=== PATIENT | female | born 1955 | race Caucasian/White ===

== ENCOUNTER 2017-06-07 14:28 | Emergency (ER) | payer MEDICARE, OTHER ==
[2017-06-07 14:46] VITALS: BMI 25.9
[2017-06-07] MEDS ORDERED: Albuterol-Ipratrop 3 mg / 0.5 (3 ml) UD INH STA (16:04)
[2017-06-07] MEDS ORDERED: guaiFENesin 100 mg/5 ml Syrup UD PO STA (16:05)
--- NOTE | 2017-06-07 16:31 | RAD ---
PROCEDURE: Chest dated 06/07/2017. HISTORY: SOB COMPARISON: Comparison chest 10/30/2014. FINDINGS: LUNGS: There appears to be mild bibasilar atelectasis with what may represent some minor linear scarring in the left lateral mid to lower lung field. Minor biapical pleural thickening right greater than left. PLEURA: No pneumothorax or pleural fluid seen. CARDIOVASCULAR: Sternotomy wires again noted. Heart size appears borderline/mildly enlarged. OSSEOUS STRUCTURES: No significant abnormalities. VISUALIZED UPPER ABDOMEN: Normal. OTHER FINDINGS: None. IMPRESSION: Suspect mild bibasilar atelectasis and probable linear scarring left lateral mid to lower lung field
[2017-06-07 16:34] LABS: BASO % 0.6 % (0.0-2.0); EOS # 0.2 K/uL (0.0-0.7); EOS % 1.9 % (0.0-4.0); HEMATOCRIT 39.9 % (34.0-47.0); LYMPH # 1.9 K/uL (1.0-4.3); LYMPH % 21.8 % (20.0-40.0); MEAN CELL VOLUME 81.1 fL (81.0-99.0); MEAN CORPUSCULAR HEMOGLOBIN 25.9 pg (27.0-31.0); MEAN PLATELET VOLUME 9.2 fL (7.2-11.7); MONO # 0.7 K/uL (0.0-0.8); MONO % 8.3 % (0.0-10.0); NRBC % 0.1 % (0.0-2.0); RED CELL DISTRIBUTION WIDTH 14.3 % (11.5-14.5); WHITE BLOOD COUNT 8.7 K/uL (4.8-10.8)
[2017-06-07 16:49] LABS: ALB/GLOB RATIO 1.3 (1.0-2.1); ALKALINE PHOSPHATASE 85 U/L (38-126); ALT/SGPT 45 U/L (9-52); AST/SGOT 40 U/L (14-36); BILIRUBIN,TOTAL 0.6 mg/dL (0.2-1.3); BLOOD UREA NITROGEN 40 mg/dL (7-17); CALCIUM 8.6 mg/dl (8.6-10.4); CARBON DIOXIDE 21 mmol/L (22-30); CHLORIDE 106 mmol/L (98-107); GFR AFRICAN-AMERICAN 46; GLUCOSE,RANDOM 102 mg/dL (65-105); POTASSIUM 4.4 mmol/L (3.6-5.2); SODIUM 136 mmol/L (132-148); TOTAL PROTEIN 6.7 g/dL (6.3-8.3)
[2017-06-07] MEDS ORDERED: Albuterol-Ipratrop 3 mg / 0.5 (3 ml) UD ONE ×2 (16:53→17:11)
[2017-06-07] MEDS ORDERED: guaiFENesin 100 mg/5 ml Syrup UD ONE (16:57)
--- NOTE | 2017-06-07 18:01 | C.PDOC ---
History Of Present Illness 61 year old female with a Hx of heart transplant presents to the ER with a complaint of a dry nonproductive cough for the past 2 weeks. Patient states she has been taking robitussin 0-1 times a day and occasional tylenol. Denies chest pain or SOB. Time Seen by Provider: 06/07/17 15:04 Chief Complaint (Nursing): Cough, Cold, Congestion History Per: Patient History/Exam Limitations: no limitations Onset/Duration Of Symptoms: Days Current Symptoms Are (Timing): Still Present Location Of Pain: None Sick Contacts (Context): None Associated Symptoms: Cough. denies: Fever, Chills, Sputum, Other (Chest pain, SOB) Ear Symptoms: Bilateral: None Recent travel outside of the [place]: No Past Medical History Reviewed: Historical Data, Nursing Documentation, Vital Signs Vital Signs: Last Vital Signs Temp 97.8 F 06/07/17 18:22 Pulse 107 H 06/07/17 18:22 Resp 18 06/07/17 18:22 BP 150/90 06/07/17 18:22 Pulse Ox 97 06/07/17 18:22 - Medical History PMH: Asthma, Diabetes, HTN, Hypercholesterolemia Surgical History: Pacemaker Family History: States: Unknown Family Hx - Social History Hx Tobacco Use: No Hx Alcohol Use: No Hx Substance Use: No - Immunization History Hx Tetanus Toxoid Vaccination: No Hx Influenza Vaccination: No Hx Pneumococcal Vaccination: No Review Of Systems Constitutional: Negative for: Fever, Chills Cardiovascular: Negative for: Chest Pain Respiratory: Positive for: Cough. Negative for: Shortness of Breath, Sputum Physical Exam - Physical Exam Appears: Non-toxic, No Acute Distress Skin: Normal Color, Warm, Dry Head: Atraumatic, Normacephalic Eye(s): bilateral: Normal Inspection Oral Mucosa: Moist Throat: Normal, No Erythema, No Exudate Neck: Normal, Supple Chest: Other (Midline sternotomy scar) Cardiovascular: Rhythm Regular Respiratory: Normal Breath Sounds, No Rales, No Rhonchi, No Wheezing Gastrointestinal/Abdominal: Soft, No Tenderness Neurological/Psych: Oriented x3, Normal Speech ED Course And Treatment - Laboratory Results Result Diagrams: 06/07/17 16:29 06/07/17 16:29 Lab Interpretation: Normal (bnp/trop neg.) ECG: Interpreted By Me ECG Rhythm: Sinus Tachycardia ECG Interpretation: Abnormal Rate From EC (after nebs.) O2 Sat by Pulse Oximetry: 99 Pulse Ox Interpretation: Normal - Radiology CXR: Interpreted by Me CXR Interpretation: Yes: No Acute Disease Progress Note: EKG, blood work, CXR, and urinalysis ordered. Robitussin, solumedrol, and nebulizer treatment administered. Reevaluation Time: 17:59 Reassessment Condition: Improved Medical Decision Making Medical Decision Making: mild viral syndrome with exposure risks @ work, but no s/s of PNA scant daytime/nightime cold meds Has nebs machine @ home, will refill Duoneb ampules. Disposition Doctor Will See Patient In The: Office Counseled Patient/Family Regarding: Studies Performed, Diagnosis - Disposition Referrals: Blaise Sanchez MD [Non-Staff] - Disposition: HOME/ ROUTINE Disposition Time: 18:00 Condition: GOOD Additional Instructions: sigue Dayquil o' Nyquil para margot sintomas Duoneb tratemientos nebulizadas 4-5 veces al gisselle. Gonsalez EKG, placa del pecho, y examanes de la tenzin son NORMALES Prescriptions: Albuterol/Ipratropium [Duoneb 3 MG/3 Ml-0.5 MG/3 Ml 3 Ml] 6 ml IH Q4H PRN #100 neb PRN Reason: asthma Instructions: Viral Syndrome (ED) Forms: [facility] (Kinyarwanda) Print Language: YI - Clinical Impression Clinical Impression: Influenza-like illness, Viral disease - Scribe Statement The provider has reviewed the documentation as recorded by the Scribkayla Curiel All medical record entries made by the Scribe were at my direction and personally dictated by me. I have reviewed the chart and agree that the record accurately reflects my personal performance of the history, physical exam, medical decision making, and the department course for this patient. I have also personally directed, reviewed, and agree with the discharge instructions and disposition.
[2017-06-07 18:23] VITALS: BP 150/90; PULSE 107; RESP 18; TEMP 97.8
[2017-06-07 19:21] VITALS: O2SAT 99
--- NOTE | 2017-06-10 09:02 | CARD ---
APPROVED REPORT EKG Measurement Heart [id number] <Conclusion> Sinus tachycardia Biatrial enlargement Possible Inferior infarct, age undetermined Abnormal ECG
== END 2017-06-07 18:15 | disposition home or self-care (01) ==
LOC: C.ER 14:28
DX: J11.1 Influenza due to unidentified influenza virus with other respiratory manifestations (principal); B34.9 Viral infection, unspecified
CPT/HCPCS: 71010; 80053; 83880; 84484; 85025; 87040; 94640; 96374; 99285; J2930

== ENCOUNTER 2017-07-30 10:54 | Observation (INO) | payer MEDICARE, OTHER ==
[2017-07-30 11:00] VITALS: BMI 32.3
--- NOTE | 2017-07-30 11:35 | C.PDOC ---
History Of Present Illness 61 year old female presents to the ED c/o pressure like chest pain for the past 3 days. Patient is also complaining of cough, congestions, chills for the past couple of days. Patient has a Hx of heart transplant 9 years ago, currently on immune suppressors. Patient denies fever, vomit, nausea, abdominal pain, back pain, weakness, numbness. Time Seen by Provider: 07/30/17 11:10 Chief Complaint (Nursing): Chest Pain History Per: Patient History/Exam Limitations: no limitations Onset/Duration Of Symptoms: Days Current Symptoms Are (Timing): Still Present Quality: Pressure Modifying Factors: None Exacerbating Factors: None Recent travel outside of the [place]: No Additional History Per: Patient Past Medical History Reviewed: Historical Data, Nursing Documentation, Vital Signs Vital Signs: Last Vital Signs Temp 99.1 F 07/30/17 17:38 Pulse 88 07/30/17 17:38 Resp 20 07/30/17 17:38 BP 156/95 H 07/30/17 17:38 Pulse Ox 97 07/30/17 17:38 - Medical History PMH: Asthma, Diabetes, HTN, Hypercholesterolemia Denies: Chronic Kidney Disease Surgical History: Pacemaker Other Surgeries: heart transplant 9 years ago Family History: States: Unknown Family Hx - Social History Hx Tobacco Use: No Hx Alcohol Use: No Hx Substance Use: No - Immunization History Hx Tetanus Toxoid Vaccination: No Hx Influenza Vaccination: No Hx Pneumococcal Vaccination: No Review Of Systems Constitutional: Positive for: Chills. Negative for: Fever ENT: Positive for: Nose Congestion Cardiovascular: Positive for: Chest Pain Respiratory: Positive for: Cough. Negative for: Shortness of Breath Gastrointestinal: Negative for: Nausea, Vomiting, Abdominal Pain, Diarrhea Genitourinary: Negative for: Dysuria, Hematuria Musculoskeletal: Negative for: Back Pain Skin: Negative for: Rash Neurological: Negative for: Weakness, Numbness, Headache, Dizziness Physical Exam - Physical Exam Appears: Non-toxic, No Acute Distress Skin: Normal Color, Warm, Dry Head: Atraumatic, Normacephalic Eye(s): bilateral: Normal Inspection Nose: No Discharge, No Deformity Oral Mucosa: Moist Neck: Normal ROM, Supple Chest: Symmetrical, Other (surgical scar) Cardiovascular: Rhythm Regular, No Murmur Respiratory: Normal Breath Sounds, No Rales, No Rhonchi, No Wheezing Gastrointestinal/Abdominal: Soft, No Tenderness, No Guarding, No Rebound Extremity: Normal ROM, No Pedal Edema, No Calf Tenderness, No Deformity, No Swelling Neurological/Psych: Oriented x3, Normal Speech, Normal Cognition Gait: Steady ED Course And Treatment - Laboratory Results Result Diagrams: 07/30/17 12:07 07/30/17 12:07 ECG Rhythm: Sinus Tachycardia Interpretation Of ECG: diffuse ST and T changes Rate From EC O2 Sat by Pulse Oximetry: 98 (On RA) Pulse Ox Interpretation: Normal - Radiology CXR: Viewed By Me, Read By Radiologist CXR Interpretation: Yes: Other (No active pulmonary disease.). No: No Acute Disease, Infiltrates Progress Note: Plan: -EKG. -Labs. -CXR. Influenza A positive. -Tamiflu 75 mg PO. -Blood culture. -UA. Patient was influenza A positive. Spoke with Dr. 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 - Scribe Statement The provider has reviewed the documentation as recorded by the Scribe Minesh Zee All medical record entries made by the Scribe were at my direction and personally dictated by me. I have reviewed the chart and agree that the record accurately reflects my personal performance of the history, physical exam, medical decision making, and the department course for this patient. I have also personally directed, reviewed, and agree with the discharge instructions and disposition.
[2017-07-30 12:23] LABS: BASO % 0.2 % (0.0-2.0); EOS % 0.7 % (0.0-4.0); HEMOGLOBIN 13.5 g/dL (11.0-16.0); LYMPH # 0.4 K/uL (1.0-4.3); LYMPH % 6.4 % (20.0-40.0); MEAN CELL VOLUME 81.3 fL (81.0-99.0); MEAN CORPUSCULAR HEMOGLOBIN 26.4 pg (27.0-31.0); MEAN CORPUSCULAR HGB CONC 32.4 g/dL (33.0-37.0); MEAN PLATELET VOLUME 9.1 fL (7.2-11.7); MONO # 0.5 K/uL (0.0-0.8); MONO % 8.5 % (0.0-10.0); NEUT # 5.3 K/uL (1.8-7.0); NEUT % 84.2 % (50.0-75.0); PLATELET COUNT 160 K/uL (130-400); RBC 5.12 Mil/uL (3.80-5.20); RED CELL DISTRIBUTION WIDTH 15.1 % (11.5-14.5); WHITE BLOOD COUNT 6.3 K/uL (4.8-10.8)
[2017-07-30 12:24] LABS: INFLUENZA A B POS FOR INFLUENZA A (NEGATIVE)
[2017-07-30 12:27] LABS: PROTHROMBIN TIME 11.6 SECONDS (9.7-12.2)
[2017-07-30 12:36] LABS: ALB/GLOB RATIO 1.2 (1.0-2.1); CALCIUM 8.1 mg/dl (8.6-10.4); GFR AFRICAN-AMERICAN 50; GFR NON-AFRICAN AMERICAN 41
[2017-07-30 12:38] LABS: ALT/SGPT 37 U/L (9-52); AST/SGOT 44 U/L (14-36); BLOOD UREA NITROGEN 25 mg/dL (7-17)
--- NOTE | 2017-07-30 12:39 | RAD ---
PROCEDURE: CHEST RADIOGRAPH, 1 VIEW HISTORY: CP, URI symptoms COMPARISON: 06/07/2017. FINDINGS: LUNGS: The lungs are well inflated and clear. PLEURA: No pneumothorax or pleural fluid seen. CARDIOVASCULAR: The heart is normal in size. Status post CABG with OSSEOUS STRUCTURES: No significant abnormalities. VISUALIZED UPPER ABDOMEN: Normal. OTHER FINDINGS: None. IMPRESSION: No active pulmonary disease.
[2017-07-30 12:53] LABS: BANDS 1 % (0-2); LYMPHOCYTE 6 % (20-40); MONOCYTE 8 % (0-10); NEUTROPHIL 85 % (50-75); PLATELET ESTIMATE NORMAL (NORMAL); TOTAL CELLS COUNTED 100
[2017-07-30 12:54] LABS: ANISOCYTOSIS SLIGHT; B-TYPE NATRIURETIC PEPTIDE 695 pg/mL (0-900); CK-MB 0.24 ng/mL (0.0-3.38); OVALOCYTES SLIGHT
[2017-07-30 13:00] LABS: SQUAMOUS EPITHIAL < 1 /hpf (0-5); URINE BILIRUBIN NEGATIVE (NEGATIVE); URINE BLOOD NEGATIVE (NEGATIVE); URINE CLARITY Clear (Clear); URINE COLOR Yellow (YELLOW); URINE GLUCOSE (UA) NORMAL (Normal); URINE LEUKOCYTE ESTERASE NEG Leu/uL (Negative); URINE NITRATE NEGATIVE (NEGATIVE); URINE PROTEIN 2+ mg/dL (NEGATIVE); URINE UROBILINOGEN NORMAL mg/dL (0.2-1.0)
--- NOTE | 2017-07-30 14:21 | CP.PCM.PN ---
Subjective - Date & Time of Evaluation Date of Evaluation: 07/30/17 Time of Evaluation: 14:20 - Subjective Subjective: PGY-[address] Ahmadi's service: Patient is a 61 F, with PMHx of heart transplant (~2007), HTN, hyperlipidemia, asthma, and diabetes, who presents to [facility] ED for URI and body aches for three days. Patient states she has had a dry cough for the last "two weeks" but has worsened over the last couple days and has become associated with body aches, chills, and pleuritic chest pain that is made worse by the cough. She states she was told by her transplant doctor, Dr. Almanzar, at [facility] to go to the hospital when she feels sick because she is on immunosuppressive post-transplant therapy for the rest of her life. Pt states she was diagnosed with type two diabetes "years ago" and was prescribed Lantus by her PMD but " has not taken it for months because she "does not think she needs it." She denies pressure-like squeezing chest pain, SOB, palpitations, nausea, vomiting, or diarrhea. She denies recent travel or other sick contacts. PMHx: HTN, hyperlipidemia, asthma, and type two diabetes mellitus PSHx: heart transplant (~2007) - on life long immunosuppressants, pacemaker SHx: denies ever using tobacco products; occasional EtOH socially; denies drug use; retired Allergies: NKA Objective - Vital Signs/Intake and Output Vital Signs (last 24 hours): Temp Pulse Resp BP Pulse Ox 97.9 F 101 H 20 131/83 99 07/30/17 13:55 07/30/17 13:55 07/30/17 13:55 07/30/17 13:55 07/30/17 13:55 - Labs Labs: 07/30/17 12:07 07/30/17 12:07 PT 11.6 SECONDS (9.7-12.2) 07/30/17 12:07 INR 1.0 07/30/17 12:07 APTT 31 SECONDS (21-34) 07/30/17 12:07 - Constitutional Appears: Non-toxic, No Acute Distress - Head Exam Head Exam: ATRAUMATIC, NORMAL INSPECTION, NORMOCEPHALIC - Eye Exam Eye Exam: EOMI, Normal appearance Pupil Exam: PERRL - ENT Exam ENT Exam: Mucous Membranes Moist - Neck Exam Neck Exam: Full ROM - Respiratory Exam Respiratory Exam: Clear to Ausculation Bilateral, NORMAL BREATHING PATTERN. absent: Rales, Rhonchi, Wheezes Additional comments: Posterior rib pain with cough - Cardiovascular Exam Cardiovascular Exam: REGULAR RHYTHM, +S1, +S2 - GI/Abdominal Exam GI & Abdominal Exam: Soft, Normal Bowel Sounds. absent: Tenderness - Extremities Exam Extremities Exam: Normal Inspection. absent: Pedal Edema - Back Exam Back Exam: tenderness (posterior rib tenderness with palpation). absent: CVA tenderness (L), CVA tenderness (R) - Neurological Exam Neurological Exam: Alert, Awake, Oriented x3 - Psychiatric Exam Psychiatric exam: Normal Affect, Normal Mood - Skin Skin Exam: Dry, Normal Color, Warm Assessment and Plan - Assessment and Plan (Free Text) Plan: Chest Pain - R/o ACS Observe on telemetry Patient with history of heart transplant, on immune suppressor Pt describes as pleuritic CP, worse with cough, but pt w extensive cardiac history Cardiology consult: Dr. Duffy, help appreciated - f/u reccs EKG: sinus tachy 116 bpm, atrial enlargement, T wave inversions noted laterally CXR (07/30/17): NAD KYLE negative x 1; f/u Q6H x 2 BNP 695 ASA 81 mg PO daily Influenza Type A Infection Afebrile, No WBC but left shift and pt on immunosuppressants Droplet Isolation Oseltamivir 75mg PO BID Mucinex 5ml PO Q4h PRN Phenergan w codeine Q4H for cough Acetaminophen 650mg PO q6h PRN for fever ID consult, Dr. Araujo, help appreciated: Prophylactic Pneumonia coverage in light of pts immunosuppression: Avelox 400mg IV Daily (start 07/30/17) Vanco 500mg IV ONCE (renal adjustment) f/u blood cultures, atypicals History of heart transplant On life-long immunosuppressants Surgeon/Cell Tester: Dr. Almanzar/Coretta ([facility]) - will touch base for any recommendations Tacrolimus 3mg QAM, 2.5 mg PM QPM - f/u AM level Magnesium Ox 400mg PO BID Elevated Creatinine Cr 1.3 on presentation will evaluate after hydration Monitor HTN Hydralazine 10mg PO BID Lasix 40mg PO Daily Lisinopril 20mg PO Q24H Hyperlipidemia Crestor 5mg PO HS f/u A1c, lipid panel Osteoporosis Alendronate 70mg q weekly (pt last use on Saturday07/29/17) Calcium Citrate/Vit D Daily Proteinuria 2/2 long-standing diabetes UA: 2+ protein Lisinopril 20mg PO Daily Asthma Duonebs Q6H PRN SOB Diabetes Mellitus Patient prescribed Lantus by PMD but has not "taken for months" Hypoglycemia protocol Accuchecks ACHS Insulin sliding scale f/u A1c, lipid panel Prophylaxis Heparin 5000u SC Q8H SCDs Protonix 40mg PO Daily Nilesh Cruz PGY-2 All medical management per DR. Ahmadi
[2017-07-30] MEDS ORDERED: Glucagon Recombinant 1 mg Inj IM PRN (17:22)
[2017-07-30] MEDS ORDERED: Dextrose 50% SYRINGE Inj (50 ml) IV PRN (17:22)
[2017-07-30] MEDS ORDERED: Promethazine/Cod 6.25mg-10mg/5ml Syr UD PO PRN (17:45)
[2017-07-30] MEDS ORDERED: Albuterol-Ipratrop 3 mg / 0.5 (3 ml) UD INH PRN (18:00)
[2017-07-30] MEDS: guaiFENesin 600 mg ER Tab PO SCH (19:55)
[2017-07-30] MEDS: Sodium Chloride 0.9% 1,000 ML IV SCH (19:55)
[2017-07-30] MEDS ORDERED: Moxifloxacin IV 400mg/250ml NS 400 MG/250 ML BAG IVPB SCH (20:00)
[2017-07-30 20:11] LABS: CK-MB < 0.22 ng/mL (0.0-3.38)
[2017-07-30 21:23] LABS: LEGIONELLA AG URINE NEGATIVE (NEGATIVE); MYCOPLASMA PNEUMONIAE IGM NEGATIVE (NEGATIVE)
[2017-07-30] MEDS: (Novolin R) Insulin Human Regular 100 units/ml vial SC SCH (22:10)
--- NOTE | 2017-07-30 23:44 | CP.PCM.CON ---
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 Do not see any need foe additional cardiac w/u at this time Follow ROMis and ECHO Resume all the patient medications Past Patient History - Past Medical History & Family History Past Medical History?: Yes - Past Social History Smoking Status: Never Smoked - CARDIAC Hx Hypercholesterolemia: Yes Hx Hypertension: Yes Hx Pacemaker: Yes - PULMONARY Hx Asthma: Yes - NEUROLOGICAL Hx Neurological Disorder: No - HEENT Hx HEENT Problems: No - RENAL Hx Chronic Kidney Disease: No - ENDOCRINE/METABOLIC Hx Endocrine Disorders: Yes Hx Diabetes Mellitus Type 1: Yes - HEMATOLOGICAL/ONCOLOGICAL Hx Blood Disorders: No - INTEGUMENTARY Hx Dermatological Problems: No - MUSCULOSKELETAL/RHEUMATOLOGICAL Hx Falls: No - GASTROINTESTINAL Hx Gastrointestinal Disorders: No - GENITOURINARY/GYNECOLOGICAL Hx Genitourinary Disorders: No - PSYCHIATRIC Hx Substance Use: No - SURGICAL HISTORY Hx Surgeries: Yes Hx Section: Yes Hx Tubal Ligation: Yes Other/Comment: HEART TRANSPLANT 8 YEARS AGO - ANESTHESIA Hx Anesthesia: Yes Hx Anesthesia Reactions: No Hx Malignant Hyperthermia: No Meds Allergies/Adverse Reactions: Allergies Allergy/AdvReac Type Severity Reaction Status Date / Time No Known Allergies Allergy Verified 07/30/17 10:59 - Medications Medications: Current Medications Acetaminophen (Tylenol 325mg Tab) 650 mg PO Q6 PRN PRN Reason: Fever >100.4 F Last Admin: 07/30/17 22:13 Dose: 650 mg Albuterol/Ipratropium (Duoneb 3 Mg/0.5 Mg (3 Ml) Ud) 3 ml INH RQ6 PRN PRN Reason: Shortness of Breath Aspirin (Ecotrin) 81 mg PO DAILY CHELA Dextrose (Dextrose 50% Inj) 0 ml IV STAT PRN; Protocol PRN Reason: Hypoglycemia Protocol Dextrose (Glutose 15) 0 gm PO ONCE PRN; Protocol PRN Reason: Hypoglycemia Protocol Folic Acid (Folic Acid) 1 mg PO DAILY CHELA Furosemide (Lasix) 40 mg PO DAILY CHELA Glucagon (Glucagen Diagnostic Kit) 0 mg IM STAT PRN; Protocol PRN Reason: Hypoglycemia Protocol Guaifenesin (Mucinex La) 600 mg PO BID CHELA Last Admin: 07/30/17 19:55 Dose: 600 mg Heparin Sodium (Porcine) (Heparin) 5,000 units SC Q8 [facility] Last Admin: 07/30/17 22:04 Dose: 5,000 units Hydralazine HCl (Apresoline) 10 mg PO Q12H [facility] Last Admin: 07/30/17 22:04 Dose: 10 mg Dextrose (Dextrose 5% In Water 1000 Ml) 1,000 mls @ 0 mls/hr IV .Q0M PRN; Protocol; Per Protocol PRN Reason: Hypoglycemia Protocol Sodium Chloride (Sodium Chloride 0.9%) 1,000 mls @ 100 mls/hr IV .Q10H [facility] Last Admin: 07/30/17 19:55 Dose: 100 mls/hr Insulin Human Regular (Novolin R) 0 unit SC ACHS [facility] PRN Reason: Protocol Last Admin: 07/30/17 22:10 Dose: Not Given Lisinopril (Zestril) 20 mg PO Q24H [facility] Last Admin: 07/30/17 19:55 Dose: 20 mg Magnesium Oxide (Mag-Ox) 400 mg PO DAILY [facility] Moxifloxacin HCl (Avelox) 400 mg PO Q24H [facility] Last Admin: 07/30/17 22:04 Dose: 400 mg Oseltamivir Phosphate (Tamiflu Cap) 75 mg PO BID [facility] Stop: 08/04/17 16:22 Last Admin: 07/30/17 19:55 Dose: 75 mg Promethazine HCl/Codeine (Phenergan/Codeine Oral Syrup) 5 ml PO Q4 PRN PRN Reason: Cough and congestion Rosuvastatin Calcium (Crestor) 5 mg PO HS [facility] Last Admin: 07/30/17 22:04 Dose: 5 mg Tacrolimus (Prograf Cap) 3 mg PO QAM [facility] Tacrolimus (Prograf Cap) 2.5 mg PO Q24H [facility] Last Admin: 07/30/17 22:10 Dose: 2.5 mg Results - Vital Signs Recent Vital Signs: Last Vital Signs Temp 99.1 F 07/30/17 21:24 Pulse 110 H 07/30/17 22:00 Resp 20 07/30/17 21:24 BP 164/66 H 07/30/17 21:24 Pulse Ox 96 07/30/17 21:24 - Labs Result Diagrams: 07/30/17 12:07 07/30/17 12:07 Labs: Laboratory Results - last 24 hr 0107/30/17 07/30/17 11:36 12:07 12:07 WBC 6.3 RBC 5.12 Hgb 13.5 Hct 41.6 MCV 81.3 MCH 26.4 L MCHC 32.4 L RDW 15.1 H Plt Count 160 MPV 9.1 Neut % (Auto) 84.2 H Lymph % (Auto) 6.4 L Donley % (Auto) 8.5 Eos % (Auto) 0.7 Baso % (Auto) 0.2 Neut # 5.3 Lymph # 0.4 L Donley # 0.5 Eos # 0.0 Baso # 0.0 Neutrophils % (Manual) 85 H Band Neutrophils % 1 Lymphocytes % (Manual) 6 L Monocytes % (Manual) 8 Platelet Estimate Normal Anisocytosis (manual) Slight Ovalocytes Slight PT 11.6 INR 1.0 APTT 31 Sodium Potassium Chloride Carbon Dioxide Anion Gap BUN Creatinine Est GFR ( Amer) Est GFR (Non-Af Amer) POC Glucose (mg/dL) Random Glucose Calcium Total Bilirubin AST ALT Alkaline Phosphatase Total Creatine Kinase CK-MB (Mass) Troponin I NT-Pro-B Natriuret Pep Total Protein Albumin Globulin Albumin/Globulin Ratio Urine Color Urine Clarity Urine pH Ur Specific [place] Urine Protein Urine Glucose (UA) Urine Ketones Urine Blood Urine Nitrate Urine Bilirubin Urine Urobilinogen Ur Leukocyte Esterase Urine WBC (Auto) Urine RBC (Auto) Ur Squamous Epith Cells Influenza Typ A,B (EIA) Pos for influenza a H Ur L.pneumophila Ag Mycoplasma pneumon IgM RSV Antigen Negative 07/30/17 07/30/17 07/30/17 12:07 12:45 16:42 WBC RBC Hgb Hct MCV MCH MCHC RDW Plt Count MPV Neut % (Auto) Lymph % (Auto) Donley % (Auto) Eos % (Auto) Baso % (Auto) Neut # Lymph # [place] # Eos # Baso # Neutrophils % (Manual) Band Neutrophils % Lymphocytes % (Manual) Monocytes % (Manual) Platelet Estimate Anisocytosis (manual) Ovalocytes PT INR APTT Sodium 134 Potassium 4.6 Chloride 105 Carbon Dioxide 20 L Anion Gap 14 BUN 25 H Creatinine 1.3 H Est GFR ( Amer) 50 Est GFR (Non-Af Amer) 41 POC Glucose (mg/dL) 84 Random Glucose 101 Calcium 8.1 L Total Bilirubin 0.7 AST 44 H ALT 37 Alkaline Phosphatase 66 Total Creatine Kinase 47 CK-MB (Mass) 0.24 Troponin I < 0.0120 NT-Pro-B Natriuret Pep 695 Total Protein 7.4 Albumin 4.0 Globulin 3.4 Albumin/Globulin Ratio 1.2 Urine Color Yellow Urine Clarity Clear Urine pH 7.0 Ur Specific [place] 1.017 Urine Protein 2+ H Urine Glucose (UA) Normal Urine Ketones Negative Urine Blood Negative Urine Nitrate Negative Urine Bilirubin Negative Urine Urobilinogen Normal Ur Leukocyte Esterase Neg Urine WBC (Auto) 1 Urine RBC (Auto) < 1 Ur Squamous Epith Cells < 1 Influenza Typ A,B (EIA) Ur L.pneumophila Ag Mycoplasma pneumon IgM RSV Antigen 07/30/17 07/30/17 07/30/17 19:33 20:45 22:06 WBC RBC Hgb Hct MCV MCH MCHC RDW Plt Count MPV Neut % (Auto) Lymph % (Auto) [place] % (Auto) Eos % (Auto) Baso % (Auto) Neut # Lymph # [place] # Eos # Baso # Neutrophils % (Manual) Band Neutrophils % Lymphocytes % (Manual) Monocytes % (Manual) Platelet Estimate Anisocytosis (manual) Ovalocytes PT INR APTT Sodium Potassium Chloride Carbon Dioxide Anion Gap BUN Creatinine Est GFR ( Amer) Est GFR (Non-Af Amer) POC Glucose (mg/dL) 106 Random Glucose Calcium Total Bilirubin AST ALT Alkaline Phosphatase Total Creatine Kinase 45 CK-MB (Mass) < 0.22 Troponin I < 0.0120 NT-Pro-B Natriuret Pep Total Protein Albumin Globulin Albumin/Globulin Ratio Urine Color Urine Clarity Urine pH Ur Specific [place] Urine Protein Urine Glucose (UA) Urine Ketones Urine Blood Urine Nitrate Urine Bilirubin Urine Urobilinogen Ur Leukocyte Esterase Urine WBC (Auto) Urine RBC (Auto) Ur Squamous Epith Cells Influenza Typ A,B (EIA) Ur L.pneumophila Ag Negative Mycoplasma pneumon IgM Negative RSV Antigen
[2017-07-31 01:31] LABS: CK-MB < 0.22 ng/mL (0.0-3.38)
[2017-07-31] MEDS: Sodium Chloride 0.9% 1,000 ML IV SCH ×2 (05:54)
[2017-07-31 07:34] LABS: BASO % 0.3 % (0.0-2.0); EOS % 0.9 % (0.0-4.0); HEMOGLOBIN 12.7 g/dL (11.0-16.0); MEAN CELL VOLUME 81.5 fL (81.0-99.0); MEAN CORPUSCULAR HEMOGLOBIN 26.8 pg (27.0-31.0); MEAN CORPUSCULAR HGB CONC 32.9 g/dL (33.0-37.0); MEAN PLATELET VOLUME 9.1 fL (7.2-11.7); MONO # 0.7 K/uL (0.0-0.8); MONO % 15.9 % (0.0-10.0); NEUT # 2.7 K/uL (1.8-7.0); NEUT % 60.9 % (50.0-75.0); NRBC % 0.3 % (0.0-2.0); RBC 4.74 Mil/uL (3.80-5.20); RED CELL DISTRIBUTION WIDTH 14.8 % (11.5-14.5); WHITE BLOOD COUNT 4.5 K/uL (4.8-10.8)
--- NOTE | 2017-07-31 07:49 | CP.PCM.PN ---
Subjective - Date & Time of Evaluation Date of Evaluation: 07/31/17 Time of Evaluation: 07:00 - Subjective Subjective: PGY2 medicine progress note for Dr. Ahmadi: Patient was seen and examined at bedside this morning. She repors that her chest pain has resolved. She is only complaining of body aches and slight nausea. She has had a BM and is able to eat regular food. Patient denies fever/ chills and reports a dry cough. She has no new complaints today. She was asking when she would be able to go home. Objective - Vital Signs/Intake and Output Vital Signs (last 24 hours): Temp Pulse Resp BP Pulse Ox 99.2 F 109 H 20 146/86 95 07/30/17 23:10 07/30/17 23:30 07/30/17 23:10 07/30/17 23:10 07/30/17 23:10 - Medications Medications: Current Medications Acetaminophen (Tylenol 325mg Tab) 650 mg PO Q6 PRN PRN Reason: Fever >100.4 F Last Admin: 07/30/17 22:13 Dose: 650 mg Albuterol/Ipratropium (Duoneb 3 Mg/0.5 Mg (3 Ml) Ud) 3 ml INH RQ6 PRN PRN Reason: Shortness of Breath Aspirin (Ecotrin) 81 mg PO DAILY [facility] Dextrose (Dextrose 50% Inj) 0 ml IV STAT PRN; Protocol PRN Reason: Hypoglycemia Protocol Dextrose (Glutose 15) 0 gm PO ONCE PRN; Protocol PRN Reason: Hypoglycemia Protocol Folic Acid (Folic Acid) 1 mg PO DAILY [facility] Furosemide (Lasix) 40 mg PO DAILY [facility] Glucagon (Glucagen Diagnostic Kit) 0 mg IM STAT PRN; Protocol PRN Reason: Hypoglycemia Protocol Guaifenesin (Mucinex La) 600 mg PO BID [facility] Last Admin: 07/30/17 19:55 Dose: 600 mg Heparin Sodium (Porcine) (Heparin) 5,000 units SC Q8 [facility] Last Admin: 07/31/17 05:51 Dose: 5,000 units Hydralazine HCl (Apresoline) 10 mg PO Q12H [facility] Last Admin: 07/30/17 22:04 Dose: 10 mg Dextrose (Dextrose 5% In Water 1000 Ml) 1,000 mls @ 0 mls/hr IV .Q0M PRN; Protocol; Per Protocol PRN Reason: Hypoglycemia Protocol Sodium Chloride (Sodium Chloride 0.9%) 1,000 mls @ 100 mls/hr IV .Q10H [facility] Last Admin: 07/31/17 05:54 Dose: 100 mls/hr Insulin Human Regular (Novolin R) 0 unit SC ACHS [facility] PRN Reason: Protocol Last Admin: 07/30/17 22:10 Dose: Not Given Lisinopril (Zestril) 20 mg PO Q24H [facility] Last Admin: 07/30/17 19:55 Dose: 20 mg Magnesium Oxide (Mag-Ox) 400 mg PO DAILY [facility] Moxifloxacin HCl (Avelox) 400 mg PO Q24H [facility] Last Admin: 07/30/17 22:04 Dose: 400 mg Oseltamivir Phosphate (Tamiflu Cap) 75 mg PO BID [facility] Stop: 08/04/17 16:22 Last Admin: 07/30/17 19:55 Dose: 75 mg Promethazine HCl/Codeine (Phenergan/Codeine Oral Syrup) 5 ml PO Q4 PRN PRN Reason: Cough and congestion Rosuvastatin Calcium (Crestor) 5 mg PO HS [facility] Last Admin: 07/30/17 22:04 Dose: 5 mg Tacrolimus (Prograf Cap) 3 mg PO QAM [facility] Tacrolimus (Prograf Cap) 2.5 mg PO Q24H [facility] Last Admin: 07/30/17 22:10 Dose: 2.5 mg - Labs Labs: 07/31/17 07:12 07/30/17 12:07 PT 11.6 SECONDS (9.7-12.2) 07/30/17 12:07 INR 1.0 07/30/17 12:07 APTT 31 SECONDS (21-34) 07/30/17 12:07 - Constitutional Appears: Non-toxic, No Acute Distress - Head Exam Head Exam: ATRAUMATIC, NORMAL INSPECTION, NORMOCEPHALIC - Eye Exam Eye Exam: EOMI, Normal appearance, PERRL Pupil Exam: NORMAL ACCOMODATION - ENT Exam ENT Exam: Mucous Membranes Moist - Neck Exam Neck Exam: Normal Inspection - Respiratory Exam Respiratory Exam: Clear to Ausculation Bilateral, NORMAL BREATHING PATTERN. absent: Accessory Muscle Use, Respiratory Distress - Cardiovascular Exam Cardiovascular Exam: REGULAR RHYTHM, +S1, +S2 - GI/Abdominal Exam GI & Abdominal Exam: Soft, Normal Bowel Sounds. absent: Distended, Firm, Guarding, Tenderness - Rectal Exam Rectal Exam: NORMAL INSPECTION - Extremities Exam Extremities Exam: Normal Inspection. absent: Calf Tenderness, Pedal Edema - Back Exam Back Exam: NORMAL INSPECTION. absent: CVA tenderness (L), CVA tenderness (R), paraspinal tenderness - Neurological Exam Neurological Exam: Alert, Awake, CN II-XII Intact, Oriented x3 Neuro motor strength exam: Left Upper Extremity: 5, Right Upper Extremity: 5, Left Lower Extremity: 5, Right Lower Extremity: 5 - Psychiatric Exam Psychiatric exam: Normal Affect, Normal Mood - Skin Skin Exam: Dry, Intact, Normal Color, Warm Assessment and Plan - Assessment and Plan (Free Text) Assessment: Chest Pain - R/o ACS Observe on telemetry Patient with history of heart transplant, on immune suppressor Pt describes as pleuritic CP, worse with cough, but pt w extensive cardiac history Cardiology consult: Dr. Duffy, help appreciated - f/u reccs EKG: sinus tachy 116 bpm, atrial enlargement, T wave inversions noted laterally CXR (07/30/17): NAD KYLE negative x 3 BNP 695 ASA 81 mg PO daily Influenza Type A Infection Afebrile, No WBC but left shift and pt on immunosuppressants Droplet Isolation Oseltamivir 75mg PO BID Mucinex 5ml PO Q4h PRN Phenergan w codeine Q4H for cough Acetaminophen 650mg PO q6h PRN for fever ID consult, Dr. Araujo, help appreciated: Prophylactic Pneumonia coverage in light of pts immunosuppression: Avelox 400mg IV Daily (start 07/30/17) Vanco 500mg IV ONCE (renal adjustment) Legionella, RSV, Mycoplasma - negative f/u blood cultures History of heart transplant On life-long immunosuppressants Surgeon/Brand Ambassador: Dr. Almanzar/Coretta ([facility]) - will touch base for any recommendations Tacrolimus 3mg QAM, 2.5 mg PM QPM - f/u AM level Magnesium Ox 400mg PO BID Elevated Creatinine Cr 1.3 on presentation will evaluate after hydration Monitor HTN Hydralazine 10mg PO BID Lasix 40mg PO Daily Lisinopril 20mg PO Q24H Hyperlipidemia Crestor 5mg PO HS f/u A1c, lipid panel Osteoporosis Alendronate 70mg q weekly (pt last use on Saturday07/29/17) Calcium Citrate/Vit D Daily Proteinuria 2/2 long-standing diabetes UA: 2+ protein Lisinopril 20mg PO Daily Asthma Duonebs Q6H PRN SOB Diabetes Mellitus Patient prescribed Lantus by PMD but has not "taken for months" Hypoglycemia protocol Accuchecks ACHS Insulin sliding scale f/u A1c, lipid panel Prophylaxis Heparin 5000u SC Q8H [facility] Protonix 40mg PO Daily Nilesh Cruz PGY-2 All medical management per DR. Ahmadi
[2017-07-31] MEDS: (Novolin R) Insulin Human Regular 100 units/ml vial SC SCH ×2 (08:01→12:00)
[2017-07-31 08:11] LABS: ALB/GLOB RATIO 1.1 (1.0-2.1); ALBUMIN 3.3 g/dL (3.5-5.0); CALCIUM 8.1 mg/dl (8.6-10.4); MAGNESIUM 1.5 mg/dL (1.6-2.3)
[2017-07-31 08:24] VITALS: PULSE 96; RESP 18; TEMP 97.8; O2SAT 96
[2017-07-31] MEDS ORDERED: Magnesium Sulfate 1 gm in D5W 1 GM/100 ML BAG IVPB SCH (10:00)
[2017-07-31] MEDS ORDERED: Magnesium Oxide 400 mg Tab UD PO SCH (10:00)
[2017-07-31] MEDS: guaiFENesin 600 mg ER Tab PO SCH (10:07)
[2017-07-31 10:10] VITALS: BP 127/78
--- NOTE | 2017-07-31 14:44 | CP.PCM.CON ---
History of Present Illness - History of Present Illness History of Present Illness: 61 year old female presents to the ED c/o pressure like chest pain for the past 3 days. Patient is also complaining of cough, congestions, chills for the past couple of days. Patient has a Hx of heart transplant 9 years ago, currently on immune suppressors. Patient denies fever, vomit, nausea, abdominal pain, back pain, weakness, numbness. ID consulted for antibiotic management Cultures sent - Medical History PMH: Asthma, Diabetes, HTN, Hypercholesterolemia Denies: Chronic Kidney Disease Surgical History: Pacemaker Other Surgeries: heart transplant 9 years ago Family History: States: Unknown Family Hx Review of Systems - Review of Systems All systems: reviewed and no additional remarkable complaints except - Constitutional Constitutional: As Per HPI, Anorexia, Chills, Fever, Malaise - EENT Eyes: absent: As Per HPI, Blind Spots, Blurred Vision, Change in Vision, Decreased Night Vision, Diplopia, Discharge, Dry Eye, Exophthalmos, Floaters, Irritation, Itchy Eyes, Loss of Peripheral Vision, Pain, Photophobia, Requires Corrective Lenses, Sees Flashes, Spots in Vision, Tunnel Vision, Other Visual Disturbances, Loss of Vision, Other Ears: absent: As Per HPI, Decreased Hearing, Ear Discharge, Ear Pain, Tinnitus, Abnormal Hearing, Disequilibrium, Dizziness, Other Nose/Mouth/Throat: absent: As Per HPI, Epistaxis, Nasal Congestion, Nasal Discharge, Nasal Obstruction, Nasal Trauma, Nose Pain, Post Nasal Drip, Sinus Pain, Sinus Pressure, Bleeding Gums, Change in Voice, Dental Pain, Dry Mouth, Dysphagia, Halitosis, Hoarsness, Lip Swelling, Mouth Lesions, Mouth Pain, Odynophagia, Sore Throat, Throat Swelling, Tongue Swelling, Facial Pain, Neck Pain, Neck Mass, Other - Breasts Breasts: absent: As Per HPI, Change in Shape, Mass, Pain, Nipple Discharge, Nipple Inversion, Skin Changes, Swelling, Other - Cardiovascular Cardiovascular: As Per HPI - Respiratory Respiratory: As Per HPI, Cough. absent: Dyspnea, Hemoptysis - Gastrointestinal Gastrointestinal: absent: As Per HPI, Abdominal Pain, Belching, Bloating, Change in Bowel Habits, Change in Stool Character, Coffee Ground Emesis, Constipation, Cramping, Diarrhea, Dyspepsia, Dysphagia, Early Satiety, Excessive Flatus, Fecal Incontinence, Heartburn, Hematemesis, Hematochezia, Loose Stools, Melena, Nausea, Odynophagia, Temesmus, Vomiting, Other - Genitourinary Genitourinary: absent: As Per HPI, Change in Urinary Stream, Difficulty Urinating, Dysuria, Flank Pain, Hematuria, Pyuria, Nocturia, Urinary Incontinence, Urinary Frequency, Urinary Hesitance, Urinary Urgency, Voiding Freq/Small Amts, Freq UTI, Hx Renal/Bladder Calculi, Hx /Renal Surgery, Bladder Distension, Other - Reproductive: Female Reproductive:Female: absent: As Per HPI, Amenorrhea, Amenorrhea/ Control, Currently Menstual, Cycle <21 Days, Cycle >35 Days, Cycle Variable, Menses 1-7 Days, Menses >/= 8 Days, Menses Variable, Cycle > 4 Weeks Between, No Menses for 6 Months, Heavy Menses, Light Menses, Normal Menses, Spotting Between Cycles , S/P Hysterectomy, Menopausal, Post Menopausal, Premenarche, Abnormal Vaginal Bleeding, Dysmenorrhea, Dyspareunia, Genital Lesions, Genital Pruritis, Pelvic Pain, Prolapse Symptoms, Sexual Dysfunction, Vaginal Discharge, Vaginal Dryness , Vaginal Odor, Vaginal Pruritis, Other - Menstruation Menstruation: absent: As Per HPI, Amenorrhea, Amenorrhea/ Control, Currently Menstual, Cycle <21 Days, Cycle >35 Days, Cycle Variable, Menses 1-7 Days, Menses >/= 8 Days, Menses Variable, Cycle > 4 Weeks Between, No Menses for 6 Months, Heavy Menses, Light Menses, Normal Menses, Spotting Between Cycles , S/P Hysterectomy, Menopausal, Post Menopausal, Premenarche, Abnormal Vaginal Bleeding, Dysmenorrhea, Other - Musculoskeletal Musculoskeletal: As Per HPI - Integumentary Integumentary: absent: As Per HPI, Acne, Alopecia, Bleeding Lesions, Change in Hair, Change in Nails, Change in Pigmentation, Changing Lesions, Dry Skin, Erythema, Furuncle, Hirsutism, Lesions, New Lesions, Non-Healing Lesions, Photosensitivity, Pruritus, Rash, Skin Pain, Skin Ulcer, Sores, Striae, Swelling , Unusual Bruising, Wounds, Jaundice, Other - Neurological Neurological: absent: As Per HPI, Abnormal Gait, Abnormal Hearing, Abnormal Movements, Abnormal Speech, Behavioral Changes, Burning Sensations, Confusion, Convulsions, Disequilibrium, Dizziness, Numbness, Focal Weakness, Frequent Falls , Headaches, Lack of Coordination, Loss of Vision, Memory Loss, Paresthesias, Radicular Pain, Restless Legs, Sensory Deficit, Syncope, Tingling, Tremor, Vertigo, Weakness, Other Visual Disturbances, Other - Psychiatric Psychiatric: absent: As Per HPI, Abnormal Sleep Pattern, Anhedonia, Anxiety, Auditory Hallucinations, Behavioral Changes, Change in Appetite, Change in Libido, Confusion, Depression, Difficulty Concentrating, Hallucinations, Homicidal Ideation, Hopelessness, Irritability, Memory Loss, Mood Swings, Panic Attacks, Paranoia, Suicidal Ideation, Visual Hallucinations, Tactile Hallucinations, Other - Endocrine Endocrine: absent: As Per HPI, Change in Body Appearance, Change in Libido, Cold Intolorance, Deepening of Voice, Excessive Sweating, Fatigue, Flushing, Heat Intolorance, Increase in Ring/Shoe/Hat Size, Palpitations, Polydipsia, Polyphagia, Polyuria, Other - Hematologic/Lymphatic Hematologic: absent: As Per HPI, Easy Bleeding, Easy Bruising, Lymphadenopathy, Other Past Patient History - Past Medical History & Family History Past Medical History?: Yes - Past Social History Smoking Status: Never Smoked - CARDIAC Hx Hypercholesterolemia: Yes Hx Hypertension: Yes Hx Pacemaker: Yes - PULMONARY Hx Asthma: Yes - NEUROLOGICAL Hx Neurological Disorder: No - HEENT Hx HEENT Problems: No - RENAL Hx Chronic Kidney Disease: No - ENDOCRINE/METABOLIC Hx Endocrine Disorders: Yes Hx Diabetes Mellitus Type 1: Yes - HEMATOLOGICAL/ONCOLOGICAL Hx Blood Disorders: No - INTEGUMENTARY Hx Dermatological Problems: No - MUSCULOSKELETAL/RHEUMATOLOGICAL Hx Falls: No - GASTROINTESTINAL Hx Gastrointestinal Disorders: No - GENITOURINARY/GYNECOLOGICAL Hx Genitourinary Disorders: No - PSYCHIATRIC Hx Substance Use: No - SURGICAL HISTORY Hx Surgeries: Yes Hx Section: Yes Hx Tubal Ligation: Yes Other/Comment: HEART TRANSPLANT 8 YEARS AGO - ANESTHESIA Hx Anesthesia: Yes Hx Anesthesia Reactions: No Hx Malignant Hyperthermia: No Meds Home Medications: Home Medication List Medication Instructions Recorded Confirmed Type Oseltamivir [Tamiflu Cap] 75 mg PO BID 4 Days #8 cap 07/31/17 Rx Allergies/Adverse Reactions: Allergies Allergy/AdvReac Type Severity Reaction Status Date / Time No Known Allergies Allergy Verified 07/30/17 10:59 - Medications Medications: Current Medications Acetaminophen (Tylenol 325mg Tab) 650 mg PO Q6 PRN PRN Reason: Fever >100.4 F Last Admin: 07/30/17 22:13 Dose: 650 mg Albuterol/Ipratropium (Duoneb 3 Mg/0.5 Mg (3 Ml) Ud) 3 ml INH RQ6 PRN PRN Reason: Shortness of Breath Aspirin (Ecotrin) 81 mg PO DAILY [facility] Last Admin: 07/31/17 10:07 Dose: 81 mg Dextrose (Dextrose 50% Inj) 0 ml IV STAT PRN; Protocol PRN Reason: Hypoglycemia Protocol Dextrose (Glutose 15) 0 gm PO ONCE PRN; Protocol PRN Reason: Hypoglycemia Protocol Folic Acid (Folic Acid) 1 mg PO DAILY [facility] Last Admin: 07/31/17 10:07 Dose: 1 mg Furosemide (Lasix) 40 mg PO DAILY [facility] Last Admin: 07/31/17 10:07 Dose: 40 mg Glucagon (Glucagen Diagnostic Kit) 0 mg IM STAT PRN; Protocol PRN Reason: Hypoglycemia Protocol Guaifenesin (Mucinex La) 600 mg PO BID [facility] Last Admin: 07/31/17 10:07 Dose: 600 mg Heparin Sodium (Porcine) (Heparin) 5,000 units SC Q8 [facility] Last Admin: 07/31/17 05:51 Dose: 5,000 units Hydralazine HCl (Apresoline) 10 mg PO Q12H [facility] Last Admin: 07/31/17 10:08 Dose: 10 mg Dextrose (Dextrose 5% In Water 1000 Ml) 1,000 mls @ 0 mls/hr IV .Q0M PRN; Protocol; Per Protocol PRN Reason: Hypoglycemia Protocol Sodium Chloride (Sodium Chloride 0.9%) 1,000 mls @ 100 mls/hr IV .Q10H [facility] Last Admin: 07/31/17 05:54 Dose: 100 mls/hr Insulin Human Regular (Novolin R) 0 unit SC ACHS [facility] PRN Reason: Protocol Last Admin: 07/31/17 12:00 Dose: Not Given Lisinopril (Zestril) 20 mg PO Q24H [facility] Last Admin: 07/30/17 19:55 Dose: 20 mg Magnesium Oxide (Mag-Ox) 400 mg PO DAILY [facility] Last Admin: 07/31/17 10:07 Dose: 400 mg Moxifloxacin HCl (Avelox) 400 mg PO Q24H [facility] Last Admin: 07/30/17 22:04 Dose: 400 mg Oseltamivir Phosphate (Tamiflu Cap) 75 mg PO BID [facility] Stop: 08/04/17 16:22 Last Admin: 07/31/17 10:07 Dose: 75 mg Promethazine HCl/Codeine (Phenergan/Codeine Oral Syrup) 5 ml PO Q4 PRN PRN Reason: Cough and congestion Rosuvastatin Calcium (Crestor) 5 mg PO HS [facility] Last Admin: 07/30/17 22:04 Dose: 5 mg Tacrolimus (Prograf Cap) 3 mg PO QAM [facility] Last Admin: 07/31/17 10:08 Dose: 3 mg Tacrolimus (Prograf Cap) 2.5 mg PO Q24H [facility] Last Admin: 07/30/17 22:10 Dose: 2.5 mg Physical Exam - Constitutional Appears: Non-toxic, Chronically Ill - Head Exam Head Exam: ATRAUMATIC, NORMAL INSPECTION, NORMOCEPHALIC - Eye Exam Eye Exam: PERRL. absent: Scleral icterus - ENT Exam ENT Exam: Mucous Membranes Dry, Normal External Ear Exam - Neck Exam Neck exam: Negative for: Lymphadenopathy, Thyromegaly - Respiratory Exam Respiratory Exam: Decreased Breath Sounds, Clear to Auscultation Bilateral - Cardiovascular Exam Cardiovascular Exam: REGULAR RHYTHM, +S1, +S2 - GI/Abdominal Exam GI & Abdominal Exam: Diminished Bowel Sounds, Soft. absent: Tenderness - Rectal Exam Rectal Exam: Deferred - Exam Exam: NORMAL INSPECTION - Extremities Exam Extremities exam: Positive for: pedal pulses present. Negative for: calf tenderness, pedal edema, tenderness - Back Exam Back exam: absent: CVA tenderness (L), CVA tenderness (R), paraspinal tenderness - Neurological Exam Neurological exam: Alert, CN II-XII Intact, Oriented x3, Reflexes Normal - Psychiatric Exam Psychiatric exam: Normal Mood - Skin Skin Exam: Dry, Intact Results - Vital Signs Recent Vital Signs: Last Vital Signs Temp 97.8 F 07/31/17 07:10 Pulse 96 H 07/31/17 07:10 Resp 18 07/31/17 07:10 BP 127/78 07/31/17 10:07 Pulse Ox 96 07/31/17 07:10 - Labs Result Diagrams: 07/31/17 07:12 07/31/17 07:12 Labs: Laboratory Results - last 24 hr 07/30/17 07/30/17 07/30/17 16:42 19:33 20:45 WBC RBC Hgb Hct MCV MCH MCHC RDW Plt Count MPV Neut % (Auto) Lymph % (Auto) [place] % (Auto) Eos % (Auto) Baso % (Auto) Neut # Lymph # [place] # Eos # Baso # Sodium Potassium Chloride Carbon Dioxide Anion Gap BUN Creatinine Est GFR ( Amer) Est GFR (Non-Af Amer) POC Glucose (mg/dL) 84 Random Glucose Hemoglobin A1c Calcium Phosphorus Magnesium Total Bilirubin AST ALT Alkaline Phosphatase Total Creatine Kinase 45 CK-MB (Mass) < 0.22 Troponin I < 0.0120 Total Protein Albumin Globulin Albumin/Globulin Ratio Ur L.pneumophila Ag Negative Mycoplasma pneumon IgM Negative 07/30/17 07/31/17 07/31/17 22:06 01:00 06:12 WBC RBC Hgb Hct MCV MCH MCHC RDW Plt Count MPV Neut % (Auto) Lymph % (Auto) [place] % (Auto) Eos % (Auto) Baso % (Auto) Neut # Lymph # [place] # Eos # Baso # Sodium Potassium Chloride Carbon Dioxide Anion Gap BUN Creatinine Est GFR ( Amer) Est GFR (Non-Af Amer) POC Glucose (mg/dL) 106 88 Random Glucose Hemoglobin A1c Calcium Phosphorus Magnesium Total Bilirubin AST ALT Alkaline Phosphatase Total Creatine Kinase 37 CK-MB (Mass) < 0.22 Troponin I < 0.0120 Total Protein Albumin Globulin Albumin/Globulin Ratio Ur L.pneumophila Ag Mycoplasma pneumon IgM 07/31/17 07/31/17 07/31/17 07:12 07:12 07:12 WBC 4.5 L RBC 4.74 Hgb 12.7 Hct 38.6 MCV 81.5 MCH 26.8 L MCHC 32.9 L RDW 14.8 H Plt Count 139 MPV 9.1 Neut % (Auto) 60.9 Lymph % (Auto) 22.0 [place] % (Auto) 15.9 H Eos % (Auto) 0.9 Baso % (Auto) 0.3 Neut # 2.7 Lymph # 1.0 [place] # 0.7 Eos # 0.0 Baso # 0.0 Sodium 135 Potassium 4.1 Chloride 108 H Carbon Dioxide 21 L Anion Gap 10 BUN 18 H Creatinine 1.3 H Est GFR ( Amer) 50 Est GFR (Non-Af Amer) 41 POC Glucose (mg/dL) Random Glucose 85 Hemoglobin A1c 6.6 H Calcium 8.1 L Phosphorus 3.1 Magnesium 1.5 L Total Bilirubin 0.4 AST 28 ALT 36 Alkaline Phosphatase 71 Total Creatine Kinase CK-MB (Mass) Troponin I Total Protein 6.5 Albumin 3.3 L Globulin 3.1 Albumin/Globulin Ratio 1.1 Ur L.pneumophila Ag Mycoplasma pneumon IgM 07/31/17 11:27 WBC RBC Hgb Hct MCV MCH MCHC RDW Plt Count MPV Neut % (Auto) Lymph % (Auto) [place] % (Auto) Eos % (Auto) Baso % (Auto) Neut # Lymph # [place] # Eos # Baso # Sodium Potassium Chloride Carbon Dioxide Anion Gap BUN Creatinine Est GFR ( Amer) Est GFR (Non-Af Amer) POC Glucose (mg/dL) 98 Random Glucose Hemoglobin A1c Calcium Phosphorus Magnesium Total Bilirubin AST ALT Alkaline Phosphatase Total Creatine Kinase CK-MB (Mass) Troponin I Total Protein Albumin Globulin Albumin/Globulin Ratio Ur L.pneumophila Ag Mycoplasma pneumon IgM Assessment & Plan (1) Influenza A Status: Acute (2) Asthma exacerbation Status: Acute (3) Bronchitis Status: Acute - Assessment and Plan (Free Text) Assessment: cultures pending iv antibiotics can be stopped if cultures neg cont tamiflu for 5 days follow up with transplant clinic
--- NOTE | 2017-08-01 00:28 | HP ---
HISTORY OF PRESENT ILLNESS: Ms. Willson is a 61-year-old female, who complains of the chest pain, flu, that came in to the ER to have . Patient came to the ER and advised admission. PHYSICAL EXAMINATION: GENERAL: The patient is awake, alert, oriented. VITAL SIGNS: Temperature 98, pulse 90. HEENT: Within normal limits. NECK: Supple. CHEST: Symmetrical. HEART: Regular. ABDOMEN: Soft. EXTREMITIES: No edema. ASSESSMENT: Patient suffers from flu. PLAN: Patient is to get bedrest, supportive care, Tamiflu. Erick Ahmadi MD
--- NOTE | 2017-08-01 12:14 | CARD ---
APPROVED REPORT EKG Measurement Heart [id number] <Conclusion> Sinus tachycardia Biatrial enlargement Septal infarct, age undetermined ST & T wave abnormality, consider lateral ischemia Abnormal ECG
== END 2017-07-31 15:14 | disposition home or self-care (01) ==
LOC: C.ER 10:54 → C.9E 14:19 → C.6T 16:34 → C.5S 21:36
PROVIDERS: ADMIT Internal Medicine Pulmonary Disease; ATTEND Internal Medicine Pulmonary Disease
DX: J10.1 Influenza due to other identified influenza virus with other respiratory manifestations (principal); J45.909 Unspecified asthma, uncomplicated; R07.89 Other chest pain; I10 Essential (primary) hypertension; E78.5 Hyperlipidemia, unspecified
CPT/HCPCS: 36415; 71045; 80053; 80197; 81001; 82550; 82553; 82948; 83036; 83735; 83880; 84100; 84484; 85025; 85610; 85730; 86738; 87040; 87449; 87804; 87807; 87899; 99284; G0378; J1644; J2405; J3475; J7040; J7507

== ENCOUNTER 2017-12-01 16:30 | Emergency (ER) | payer MEDICARE, OTHER ==
[2017-12-01 16:30] VITALS: BMI 32.3
[2017-12-01] MEDS ORDERED: Aspirin 325 mg EC Tablets PO STA (16:59)
--- NOTE | 2017-12-01 16:59 | C.PDOC ---
History Of Present Illness <Michelle Krishnan - Last Filed: 12/01/17 18:41> <Melvin Conway - Last Filed: 12/01/17 20:15> 62 year old female with a history of asthma presents to the emergency department with complaints of cough, shortness of breath, and mid-sternal chest pain since yesterday. Patient states her symptoms are worse with coughing. Patient reports that she has a metered-dose inhaler but has not used it for her current symptoms. She denies fever, nausea, vomiting, and chills. Patient reports a past surgical history of a heart transplant performed in 2007 and [facility]. VIA TRANS CO COUGH, SOB, MIDSTERNAL CP X 1 DAY. WORSE W COUGHING. HO ASTHMA, CURRENT SX SIM TO PRIOR ASTHMA. PS HAS MDI BUT HAS NOT USED FOR CURRENT SX. NO FEVER, NV, CHILLS. HO HEART TRANSPLANT 2007 @ [facility]. EXAM MILD DIST NONTOXIC LUNGS DECR BS B/L W DIFFUSE EXP WHEEZE SPEAKING FULL SENTENCES CV RRR SINUS TACH WARM DRY REMAINDER NEG (EulogioMichelle) History Per: Patient History/Exam Limitations: no limitations Onset/Duration Of Symptoms: Days (1) Current Symptoms Are (Timing): Still Present <Michelle Krishnan - Last Filed: 12/01/17 18:41> <Melvin Conway - Last Filed: 12/01/17 20:15> Time Seen by Provider: 12/01/17 16:51 Chief Complaint (Nursing): Chest Pain Past Medical History Reviewed: Historical Data, Nursing Documentation, Vital Signs - Medical History PMH: Asthma, Diabetes, HTN, Hypercholesterolemia, Pneumonia Denies: Chronic Kidney Disease Surgical History: Pacemaker Other Surgeries: Heart Transplant Family History: States: No Known Family Hx - Social History Hx Tobacco Use: No Hx Alcohol Use: No Hx Substance Use: No - Immunization History Hx Tetanus Toxoid Vaccination: No Hx Influenza Vaccination: No Hx Pneumococcal Vaccination: No <Michelle Krishnan - Last Filed: 12/01/17 18:41> Vital Signs: Last Vital Signs Temp 99.1 F 12/01/17 19:41 Pulse 139 H 12/01/17 19:41 Resp 22 12/01/17 19:41 BP 108/52 L 12/01/17 19:41 Pulse Ox 99 05/20/18 19:41 Review Of Systems Except As Marked, All Systems Reviewed And Found Negative. Constitutional: Negative for: Fever, Chills Cardiovascular: Positive for: Chest Pain Respiratory: Positive for: Cough, Shortness of Breath Gastrointestinal: Negative for: Nausea, Vomiting <Michelle Krishnan - Last Filed: 12/01/17 18:41> Physical Exam - Physical Exam Appears: Non-toxic, In Acute Distress (mild ) Skin: Warm, Dry Head: Atraumatic, Normacephalic Eye(s): bilateral: Normal Inspection Nose: Normal Oral Mucosa: Moist Throat: Normal, No Erythema, No Exudate Neck: Normal, Supple Chest: Symmetrical Cardiovascular: Rhythm Regular (sinus tachycardia) Respiratory: Decreased Breath Sounds (bilaterally), Wheezing (diffuse expiratory wheezing ), Other (speaking full sentences) Gastrointestinal/Abdominal: Soft, No Tenderness Back: Normal Inspection Neurological/Psych: Oriented x3, Normal Speech, Normal Cognition <Michelle Krishnan - Last Filed: 12/01/17 18:41> ED Course And Treatment - Laboratory Results Result Diagrams: 12/01/17 17:14 12/01/17 17:14 ECG: Interpreted By Nj ECG Rhythm: Sinus Tachycardia Rate From EC O2 Sat by Pulse Oximetry: 97 Pulse Ox Interpretation: Normal - Radiology CXR: Interpreted by Nj CXR Interpretation: Yes: No Acute Disease Progress Note: Plan: Venous Blood Gas. EKG. BNP. CMP. Troponin. CBC. D- Dimer. PTT. Thromboplastin Time. CXR One View. Duoneb 3ml IH. Ecotrin 243mg PO. Solu-Medrol 80mb IVP. Toradol 30mg IVP. Nebulizer Treatment <Michelle Krishnan - Last Filed: 12/01/17 18:41> - Laboratory Results Result Diagrams: 12/01/17 17:14 12/01/17 17:14 <Melvin Conway - Last Filed: 12/01/17 20:15> Progress - Data Reviewed Data Reviewed: Lab, Diagnostic imaging, EKG, Old records <Michelle Krishnan - Last Filed: 12/01/17 18:41> <Melvin Conway - Last Filed: 12/01/17 20:15> - Re-Evaluation Re-evaluation Note: 12/01/17 18:37 PS FEELS BETTER IMPROVED COMPARED TO INITIAL. HR 153 S/P ALBUTEROL X 3. PT NOTED TO BE TALKING ON CELL PHONE WO APPARENT DIFFICULTY. NO RETRACTIONS, +B/L EXP WHEEZE IMPROVED BS COMPARED TO INITIAL. CONT OBS. (Michelle Krishnan) Disposition Counseled Patient/Family Regarding: Studies Performed, Diagnosis - Disposition Disposition Time: 19:00 <Michelle Krishnan - Last Filed: 12/01/17 18:41> Counseled Patient/Family Regarding: Studies Performed, Diagnosis - POA Present On Arrival: None <Melvin Conway - Last Filed: 12/01/17 20:15> - Disposition Referrals: [facility] [Outside] Disposition: HOME/ ROUTINE Condition: STABLE Additional Instructions: ff up with your private doctor. Prescriptions: Albuterol HFA [Ventolin HFA 90 mcg/actuation (8 g)] 2 puff IH [id number] #1 puff Methylprednisolone [Medrol Dose Pack (21 tabs)] 4 mg PO DAILY #21 mg Instructions: Inhalers, Asthma (ED) Forms: [facility] (Hebrew), Gen Discharge Inst Setswana Print Language: KINYARWANDA - Clinical Impression Clinical Impression: Asthma exacerbation - Scribe Statement The provider has reviewed the documentation as recorded by the Scribe (Mookie Garciavi) <Michelle Krishnan - Last Filed: 12/01/17 18:41> <Melvin Conway - Last Filed: 12/01/17 20:15> - Scribe Statement Provider Attestation: All medical record entries made by the Scribe were at my direction and personally dictated by me. I have reviewed the chart and agree that the record accurately reflects my personal performance of the history, physical exam, medical decision making, and the department course for this patient. I have also personally directed, reviewed, and agree with the discharge instructions and disposition. (Michelle Krishnan) Physician Patient Turnover Patient Signed Over To: Melvin Conway Handoff Comments: FU REEVAL, DISPO <Michelle Krishnan - Last Filed: 12/01/17 18:41>
[2017-12-01 17:18] LABS: BASO # 0.1 K/uL (0.0-0.2); BASO % 0.5 % (0.0-2.0); EOS % 0.3 % (0.0-4.0); HEMOGLOBIN 14.5 g/dL (11.0-16.0); LYMPH # 1.1 K/uL (1.0-4.3); MEAN CORPUSCULAR HEMOGLOBIN 27.4 pg (27.0-31.0); MEAN CORPUSCULAR HGB CONC 33.4 g/dL (33.0-37.0); MEAN PLATELET VOLUME 9.1 fL (7.2-11.7); MONO # 0.6 K/uL (0.0-0.8); NEUT # 9.6 K/uL (1.8-7.0); NEUT % 84.2 % (50.0-75.0); RBC 5.3 Mil/uL (3.80-5.20); RED CELL DISTRIBUTION WIDTH 14.6 % (11.5-14.5); WHITE BLOOD COUNT 11.4 K/uL (4.8-10.8)
[2017-12-01] MEDS ORDERED: MethylPREDNISolone 40 mg Vial ONE (17:18)
[2017-12-01] MEDS ORDERED: Aspirin 325 mg EC Tablets PO ONE (17:18)
[2017-12-01] MEDS ORDERED: Albuterol-Ipratrop 3 mg / 0.5 (3 ml) UD ONE ×2 (17:22→19:17)
--- NOTE | 2017-12-01 17:23 | RAD ---
PROCEDURE: CHEST RADIOGRAPH, 1 VIEW HISTORY: SOB COMPARISON: 07/30/2017 FINDINGS: LUNGS: Clear. PLEURA: No pneumothorax or pleural fluid seen. CARDIOVASCULAR: No radiographic findings to suggest acute or significant cardiovascular disease. Incidental Finding(s): Postoperative changes related to sternotomy. OSSEOUS STRUCTURES: No significant abnormalities. VISUALIZED UPPER ABDOMEN: Normal. OTHER FINDINGS: None. IMPRESSION: No active disease. No acute/significant interval changes. Concordant results with the preliminary interpretation rendered by the emergency department physician procedure.
[2017-12-01] MEDS: Albuterol-Ipratrop 3 mg / 0.5 (3 ml) UD IH SCH ×2 (17:24→17:25)
[2017-12-01 17:29] LABS: D DIMER < 200.0 ng/mlDDU (0-243); INR 1.1; PARTIAL THROMBOPLASTIN TIME 28 SECONDS (21-34); PROTHROMBIN TIME 11.6 SECONDS (9.7-12.2)
[2017-12-01 17:41] LABS: VENOUS BLOOD GAS BASE EXCESS -4.4 mmol/L (0.0-2.0); VENOUS BLOOD GAS PCO2 35 mmHg (40-60); VENOUS BLOOD GAS PO2 34 mm/Hg (30-55); VENOUS BLOOD PH 7.37 (7.32-7.43)
[2017-12-01 17:45] LABS: B-TYPE NATRIURETIC PEPTIDE 573 pg/mL (0-900)
[2017-12-01 17:49] LABS: ALB/GLOB RATIO 1.1 (1.0-2.1); ALBUMIN 4.2 g/dL (3.5-5.0); ALT/SGPT 20 U/L (9-52); AST/SGOT 40 U/L (14-36); BLOOD UREA NITROGEN 33 mg/dL (7-17); CALCIUM 9.8 mg/dl (8.6-10.4); GFR AFRICAN-AMERICAN 42; GFR NON-AFRICAN AMERICAN 35
[2017-12-01 19:07] VITALS: O2SAT 99
[2017-12-01] MEDS ORDERED: Albuterol-Ipratrop 3 mg / 0.5 (3 ml) UD INH STA (19:12)
[2017-12-01 19:59] VITALS: BP 108/52; PULSE 139; RESP 22; TEMP 99.1
--- NOTE | 2017-12-02 12:03 | CARD ---
APPROVED REPORT EKG Measurement Heart [id number] <Conclusion> Sinus tachycardia Biatrial enlargement Inferior infarct, age undetermined Anterior infarct, age undetermined ST & T wave abnormality, consider lateral ischemia Abnormal ECG
== END 2017-12-01 20:15 | disposition home or self-care (01) ==
LOC: C.ER 16:30
DX: J45.901 Unspecified asthma with (acute) exacerbation (principal); E11.9 Type 2 diabetes mellitus without complications; E78.00 Pure hypercholesterolemia, unspecified; I10 Essential (primary) hypertension
CPT/HCPCS: 71045; 80053; 82803; 83880; 84484; 85025; 85378; 85610; 85730; 87804; 93005; 94640; 96374; 96375; 99285; J1885; J2060; J2930

== ENCOUNTER 2018-03-18 11:11 | Inpatient (IN) | payer MEDICARE, OTHER ==
[2018-03-18 11:12] VITALS: BMI 32.3
--- NOTE | 2018-03-18 11:33 | C.PDOC ---
History Of Present Illness 62 y/o female with history of Heart Transplant, HTN, Hyperlipidemia, DM and Asthma presents to ED with c/o right lower back pain radiating to right leg since she woke up this morning. PAin aggravated by movement. Patient states she took 2 Tylenol with no improvement. Denies abdominal pain, dysuria, hematuria, urinary frequency, bowel/bladder incontinence or any other complaints at this time. 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 History/Exam Limitations: no limitations Onset/Duration Of Symptoms: Hrs Current Symptoms Are (Timing): Still Present Past Medical History Reviewed: Historical Data, Nursing Documentation, Vital Signs Vital Signs: Last Vital Signs Temp 97.3 F L 03/21/18 15:15 Pulse 95 H 03/21/18 15:15 Resp 20 03/21/18 15:15 BP 138/86 03/21/18 15:15 Pulse Ox 96 03/21/18 15:15 - Medical History PMH: Asthma, Diabetes, HTN, Hypercholesterolemia, Pneumonia Surgical History: Pacemaker Family History: States: No Known Family Hx - Social History Hx Tobacco Use: No Hx Alcohol Use: No Hx Substance Use: No - Immunization History Hx Tetanus Toxoid Vaccination: No Hx Influenza Vaccination: No Hx Pneumococcal Vaccination: No Review Of Systems Constitutional: Negative for: Fever, Chills Gastrointestinal: Negative for: Nausea, Vomiting, Abdominal Pain Musculoskeletal: Positive for: Back Pain, Leg Pain Skin: Negative for: Rash, Bruising Neurological: Negative for: Weakness, Numbness Physical Exam - Physical Exam Appears: Non-toxic, Other (uncomfortable) Skin: Warm, Dry, No Rash Head: Atraumatic, Normacephalic Eye(s): bilateral: Normal Inspection, EOMI Nose: Normal Oral Mucosa: Moist Neck: Normal ROM, Supple Chest: Symmetrical, Other (left side surgical scar intact) Cardiovascular: Rhythm Regular Respiratory: Normal Breath Sounds, No Rales, No Rhonchi, No Wheezing Gastrointestinal/Abdominal: Soft, No Tenderness, No Guarding, No Rebound Back: No CVA Tenderness, No Vertebral Tenderness, Straight Leg Raising (45 degrees), Other (right paralumbar and buttock tenderness) Extremity: Normal ROM, No Pedal Edema, Capillary Refill (<2 seconds) Neurological/Psych: Oriented x3, Normal Speech, Normal Cognition, Normal Motor, Normal Sensation ED Course And Treatment - Laboratory Results Result Diagrams: 03/18/18 12:12 03/20/18 08:54 O2 Sat by Pulse Oximetry: 100 (RA) Pulse Ox Interpretation: Normal Progress Note: Pt was treated with toradol and flexeril. On re-evaluation, pt notes pain persists. Morphine ordered. On reassessment, patient notes minimal improvement. Notes she is unable to walk and lives alone. Patient remains afebrile, with no bony tenderness, extremity numbness or weakness, or abdominal pain. CAse discussed with Dr Latif, agreed plan and treatment. Case discussed with DR Macdonald, agreed upon admission. 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 - Scribe Statement The provider has reviewed the documentation as recorded by the Hirenibkayla Miles All medical record entries made by the Hirenibkayla were at my direction and personally dictated by me. I have reviewed the chart and agree that the record accurately reflects my personal performance of the history, physical exam, medical decision making, and the department course for this patient. I have also personally directed, reviewed, and agree with the discharge instructions and disposition.
[2018-03-18] MEDS ORDERED: Sodium Chloride 0.9% 1,000 ML IV ONE (11:41)
[2018-03-18] MEDS ORDERED: Sodium Chloride 0.9% 1,000 ML ONE (12:03)
[2018-03-18 12:19] LABS: BASO % 0.1 % (0.0-2.0); EOS % 0.1 % (0.0-4.0); HEMOGLOBIN 13.2 g/dL (11.0-16.0); LYMPH # 1.2 K/uL (1.0-4.3); LYMPH % 11.6 % (20.0-40.0); MEAN CORPUSCULAR HEMOGLOBIN 27.3 pg (27.0-31.0); MEAN CORPUSCULAR HGB CONC 33.3 g/dL (33.0-37.0); MEAN PLATELET VOLUME 8.5 fL (7.2-11.7); MONO # 0.3 K/uL (0.0-0.8); MONO % 2.8 % (0.0-10.0); NEUT % 85.4 % (50.0-75.0); RBC 4.82 Mil/uL (3.80-5.20); RED CELL DISTRIBUTION WIDTH 13.9 % (11.5-14.5); WHITE BLOOD COUNT 10.6 K/uL (4.8-10.8)
[2018-03-18 12:31] LABS: ALB/GLOB RATIO 1.3 (1.0-2.1); ALBUMIN 4.3 g/dL (3.5-5.0); CALCIUM 9.7 mg/dl (8.6-10.4)
--- NOTE | 2018-03-18 13:08 | RAD ---
Date of service: 03/18/2018 PROCEDURE: Radiographs of the Lumbar Spine. HISTORY: pain COMPARISON: No prior. FINDINGS: BONES: Normal alignment. No listhesis. No fracture. Diffuse lumbar endplate osteophytosis most pronounced L2-3 and L3-4. DISC SPACES: Mild posterior L4-5 and L5-S1 disc space narrowing. OTHER FINDINGS: Multiple calcifications projecting over the abdomen central and anterior to the lumbar spine most of these appear related to vascular calcifications. Correlate clinically 6 x 10 mm oval calcification ossification borders the left inferior L1 vertebral body endplate this is not clearly seen as such on the global coordinator image from an upper GI from 10/28/2013. . It appears to 4 medial and to the superior to be a left proximal ureteral calculus. Its etiology is uncertain Atherosclerotic vascular calcifications present. IMPRESSION: No vertebral body fracture. Lumbar spondylosis. 6 x 10 mm oval calcification ossification borders the left inferior L1 vertebral body endplate this is not clearly seen as such on the global coordinator image from an upper GI from 10/28/2013. . It appears to 4 medial and to the superior to be a left proximal ureteral calculus. Its etiology is uncertain. Atherosclerotic vascular calcifications present.
[2018-03-18 15:35] LABS: SQUAMOUS EPITHIAL < 1 /hpf (0-5); URINE BILIRUBIN NEGATIVE (NEGATIVE); URINE BLOOD NEGATIVE (NEGATIVE); URINE CLARITY Clear (Clear); URINE COLOR Straw (YELLOW); URINE GLUCOSE (UA) NORMAL (Normal); URINE LEUKOCYTE ESTERASE NEG Leu/uL (Negative); URINE PROTEIN 1+ mg/dL (NEGATIVE); URINE UROBILINOGEN NORMAL mg/dL (0.2-1.0)
[2018-03-18] MEDS ORDERED: Lidocaine 5% Patch TD STA (16:43)
[2018-03-18] MEDS ORDERED: Lidocaine 5% Patch TD ONE (16:55)
[2018-03-18] MEDS ORDERED: Albuterol-Ipratrop 3 mg / 0.5 (3 ml) UD INH PRN (17:52)
--- NOTE | 2018-03-18 18:10 | CP.PCM.HP ---
History of Present Illness - History of Present Illness History of Present Illness: 62 year-old F with PMH of heart transplant, HTN, DM, HLD, pneumonia, asthma presents to ED with complaints of right lower back pain since this morning. Pain radiates to right leg, not improved with taking 2 tramadol. Denies chest pain, abdominal pain, dysuria, hematuria, urinary frequency, bowel or bladder incontinence, fever. Present on Admission - Present on Admission Any Indicators Present on Admission: No Past Patient History - Past Medical History & Family History Past Medical History?: Yes - Past Social History Smoking Status: Never Smoked - CARDIAC Hx Hypercholesterolemia: Yes Hx Hypertension: Yes Hx Pacemaker: Yes - PULMONARY Hx Asthma: Yes Hx Pneumonia: Yes - NEUROLOGICAL Hx Neurological Disorder: No - HEENT Hx HEENT Problems: No - RENAL Hx Chronic Kidney Disease: No - ENDOCRINE/METABOLIC Hx Endocrine Disorders: Yes Hx Diabetes Mellitus Type 1: Yes - HEMATOLOGICAL/ONCOLOGICAL Hx Blood Disorders: No - INTEGUMENTARY Hx Dermatological Problems: No - MUSCULOSKELETAL/RHEUMATOLOGICAL Hx Falls: No - GASTROINTESTINAL Hx Gastrointestinal Disorders: No - GENITOURINARY/GYNECOLOGICAL Hx Genitourinary Disorders: No - PSYCHIATRIC Hx Substance Use: No - SURGICAL HISTORY Hx Surgeries: Yes Hx Section: Yes Hx Tubal Ligation: Yes Other/Comment: HEART TRANSPLANT 8 YEARS AGO - ANESTHESIA Hx Anesthesia: Yes Hx Anesthesia Reactions: No Hx Malignant Hyperthermia: No Meds Allergies/Adverse Reactions: Allergies Allergy/AdvReac Type Severity Reaction Status Date / Time No Known Allergies Allergy Verified 03/18/18 11:30 Results - Vital Signs Recent Vital Signs: Last Vital Signs Temp 97.9 F 03/18/18 15:55 Pulse 91 H 03/18/18 15:55 Resp 18 03/18/18 17:35 BP 138/82 03/18/18 15:55 Pulse Ox 96 03/18/18 15:55 - Labs Result Diagrams: 03/18/18 12:12 03/20/18 08:54 Labs: Laboratory Results - last 24 hr 03/18/18 03/18/18 03/18/18 12:12 12:12 15:28 WBC 10.6 RBC 4.82 Hgb 13.2 Hct 39.5 MCV 82.0 MCH 27.3 MCHC 33.3 RDW 13.9 Plt Count 189 MPV 8.5 Neut % (Auto) 85.4 H Lymph % (Auto) 11.6 L [place] % (Auto) 2.8 Eos % (Auto) 0.1 Baso % (Auto) 0.1 Neut # (Auto) 9.0 H Lymph # (Auto) 1.2 [place] # (Auto) 0.3 Eos # (Auto) 0.0 Baso # (Auto) 0.0 Sodium 138 Potassium 4.2 Chloride 106 Carbon Dioxide 20 L Anion Gap 16 BUN 33 H Creatinine 1.3 H Est GFR ( Amer) 50 Est GFR (Non-Af Amer) 41 Random Glucose 137 H Calcium 9.7 Total Bilirubin 0.6 AST 29 ALT 27 Alkaline Phosphatase 86 Total Protein 7.5 Albumin 4.3 Globulin 3.2 Albumin/Globulin Ratio 1.3 Urine Color Straw Urine Clarity Clear Urine pH 7.0 Ur Specific [place] 1.013 Urine Protein 1+ H Urine Glucose (UA) Normal Urine Ketones Negative Urine Blood Negative Urine Nitrate Negative Urine Bilirubin Negative Urine Urobilinogen Normal Ur Leukocyte Esterase Neg Urine WBC (Auto) < 1 Urine RBC (Auto) < 1 Ur Squamous Epith Cells < 1 Assessment & Plan (1) Asthma exacerbation Status: Acute (2) Bronchitis Status: Acute (3) Cervical strain Status: Acute (4) Head trauma Status: Acute (5) Influenza A Status: Acute (6) Influenza-like illness Status: Acute (7) Knee contusion Status: Acute (8) Viral disease Status: Acute - Assessment and Plan (Free Text) Plan: Patient seen and examined bedside Back pain improved Neuro consult Labs: CBC and CMP normal DVT prophylaxis
[2018-03-18] MEDS ORDERED: Pneumococcal 23-Valent Vaccine IM ONE (19:16)
[2018-03-18] MEDS: (Novolog) Insulin Aspart, Recombinant 100 u/ml 10 ml vial SC SCH (21:15)
[2018-03-18] MEDS: Lidocaine 5% Patch TD SCH (22:05)
[2018-03-19 00:10] VITALS: RESP 20
--- NOTE | 2018-03-19 07:14 | CP.PCM.CON ---
History of Present Illness - History of Present Illness History of Present Illness: CONSULT DICATATED RIGHT L3-L4 RADICULOPATHY Vs DIABETIC AMYOTROPY MRI L/S SPINE BLOOD WORK UP PT PAIN AND DIABETIC CONTROL Past Patient History - Past Medical History & Family History Past Medical History?: Yes - Past Social History Smoking Status: Never Smoked - CARDIAC Hx Cardiac Disorders: Yes Hx Hypercholesterolemia: Yes Hx Hypertension: Yes - PULMONARY Hx Respiratory Disorders: Yes Hx Asthma: Yes Hx Pneumonia: Yes - NEUROLOGICAL Hx Neurological Disorder: No - HEENT Hx HEENT Problems: No - RENAL Hx Chronic Kidney Disease: No - ENDOCRINE/METABOLIC Hx Endocrine Disorders: Yes Hx Diabetes Mellitus Type 1: Yes - HEMATOLOGICAL/ONCOLOGICAL Hx Blood Disorders: No - INTEGUMENTARY Hx Dermatological Problems: No - MUSCULOSKELETAL/RHEUMATOLOGICAL Hx Musculoskeletal Disorders: No - GASTROINTESTINAL Hx Gastrointestinal Disorders: No - GENITOURINARY/GYNECOLOGICAL Hx Genitourinary Disorders: No - PSYCHIATRIC Hx Psychophysiologic Disorder: No Hx Emotional Abuse: No Hx Physical Abuse: No Hx Substance Use: No - SURGICAL HISTORY Hx Surgeries: Yes Other/Comment: HEART TRANSPLANT 8 YEARS AGO - ANESTHESIA Hx Anesthesia: Yes Hx Anesthesia Reactions: No Hx Malignant Hyperthermia: No Meds Allergies/Adverse Reactions: Allergies Allergy/AdvReac Type Severity Reaction Status Date / Time No Known Allergies Allergy Verified 03/18/18 11:30 - Medications Medications: Current Medications Albuterol/Ipratropium (Duoneb 3 Mg/0.5 Mg (3 Ml) Ud) 3 ml INH RQ6 PRN PRN Reason: Wheezing Aspirin (Ecotrin) 81 mg PO DAILY [facility] Cyclobenzaprine HCl (Flexeril) 5 mg PO TID [facility] Folic Acid (Folic Acid) 1 mg PO DAILY [facility] Furosemide (Lasix) 40 mg PO DAILY [facility] Heparin Sodium (Porcine) (Heparin) 5,000 units SC Q12 [facility] Home Med (Alendronate Sodium [Binosto]) 70 mg PO QWK [facility] Hydralazine HCl (Apresoline) 10 mg PO DAILY [facility] Last Admin: 03/18/18 18:33 Dose: 10 mg Insulin Aspart (Novolog) 0 unit SC ACHS [facility] PRN Reason: Protocol Last Admin: 03/18/18 21:15 Dose: Not Given Lidocaine (Lidoderm) 2 ea TD Q24H [facility] Last Admin: 03/18/18 22:05 Dose: 2 ea Lisinopril (Zestril) 20 mg PO BID [facility] Last Admin: 03/18/18 21:11 Dose: 20 mg Magnesium Oxide (Mag-Ox) 400 mg PO DAILY [facility] Morphine Sulfate (Morphine) 2 mg IVP Q4 PRN PRN Reason: Pain, severe (8-10) Last Admin: 03/18/18 18:35 Dose: 2 mg Rosuvastatin Calcium (Crestor) 5 mg PO HS [facility] Last Admin: 03/18/18 21:11 Dose: 5 mg Tacrolimus (Prograf Cap) 0.5 mg PO DAILY [facility] Tacrolimus (Prograf Cap) 1 mg PO BID [facility] Results - Vital Signs Recent Vital Signs: Last Vital Signs Temp 98.5 F 03/19/18 00:09 Pulse 85 03/19/18 00:09 Resp 20 03/19/18 00:09 BP 110/71 03/19/18 00:09 Pulse Ox 98 03/19/18 03:30 - Labs Result Diagrams: 03/18/18 12:12 03/18/18 12:12 Labs: Laboratory Results - last 24 hr 03/18/18 03/18/18 03/18/18 12:12 12:12 15:28 WBC 10.6 RBC 4.82 Hgb 13.2 Hct 39.5 MCV 82.0 MCH 27.3 MCHC 33.3 RDW 13.9 Plt Count 189 MPV 8.5 Neut % (Auto) 85.4 H Lymph % (Auto) 11.6 L [place] % (Auto) 2.8 Eos % (Auto) 0.1 Baso % (Auto) 0.1 Neut # (Auto) 9.0 H Lymph # (Auto) 1.2 [place] # (Auto) 0.3 Eos # (Auto) 0.0 Baso # (Auto) 0.0 Sodium 138 Potassium 4.2 Chloride 106 Carbon Dioxide 20 L Anion Gap 16 BUN 33 H Creatinine 1.3 H Est GFR ( Amer) 50 Est GFR (Non-Af Amer) 41 POC Glucose (mg/dL) Random Glucose 137 H Calcium 9.7 Total Bilirubin 0.6 AST 29 ALT 27 Alkaline Phosphatase 86 Total Protein 7.5 Albumin 4.3 Globulin 3.2 Albumin/Globulin Ratio 1.3 Urine Color Straw Urine Clarity Clear Urine pH 7.0 Ur Specific [place] 1.013 Urine Protein 1+ H Urine Glucose (UA) Normal Urine Ketones Negative Urine Blood Negative Urine Nitrate Negative Urine Bilirubin Negative Urine Urobilinogen Normal Ur Leukocyte Esterase Neg Urine WBC (Auto) < 1 Urine RBC (Auto) < 1 Ur Squamous Epith Cells < 1 03/18/18 03/19/18 21:13 06:57 WBC RBC Hgb Hct MCV MCH MCHC RDW Plt Count MPV Neut % (Auto) Lymph % (Auto) [place] % (Auto) Eos % (Auto) Baso % (Auto) Neut # (Auto) Lymph # (Auto) [place] # (Auto) Eos # (Auto) Baso # (Auto) Sodium Potassium Chloride Carbon Dioxide Anion Gap BUN Creatinine Est GFR ( Amer) Est GFR (Non-Af Amer) POC Glucose (mg/dL) 199 H 94 Random Glucose Calcium Total Bilirubin AST ALT Alkaline Phosphatase Total Protein Albumin Globulin Albumin/Globulin Ratio Urine Color Urine Clarity Urine pH Ur Specific [place] Urine Protein Urine Glucose (UA) Urine Ketones Urine Blood Urine Nitrate Urine Bilirubin Urine Urobilinogen Ur Leukocyte Esterase Urine WBC (Auto) Urine RBC (Auto) Ur Squamous Epith Cells
[2018-03-19] MEDS: (Novolog) Insulin Aspart, Recombinant 100 u/ml 10 ml vial SC SCH ×4 (08:10→21:52)
[2018-03-19 08:38] LABS: CALCIUM 9.1 mg/dl (8.6-10.4)
[2018-03-19] MEDS: Magnesium Oxide 400 mg Tab UD PO SCH (09:41)
[2018-03-19] MEDS ORDERED: Home Med 1 UNIT (Alendronate Sodium [Binosto] 70 MG) PO SCH (10:00)
[2018-03-19] MEDS ORDERED: Home Med 1 UNIT (Insulin Lispro [Humalog Kwikpen U-100] 10 UNIT) SQ SCH (10:00)
[2018-03-19] MEDS ORDERED: INSULIN GLARGINE HUM REC ANLOG 15 UNIT SQ SCH (10:00)
--- NOTE | 2018-03-19 16:06 | MRI ---
Date of service: 03/19/2018 PROCEDURE: MR LUMBAR SPINE WITHOUT CONTRAST HISTORY: right L3-L4 HNP COMPARISON: None available. TECHNIQUE: Multiecho multiplanar sequences were performed through the lumbar spine without the use of intravenous contrast. FINDINGS: There is normal alignment of the lumbar vertebral bodies. There is normal lumbar lordosis. There is no acute fracture, spondylolysis or spondylolisthesis. Bone marrow signal is within normal limits. The conus medullaris terminates at a normal level. The nerve roots of cauda equina are normal. Paraspinous soft tissues are normal. Imaged portion of the retroperitoneum is within normal limits. There is small amount of free fluid in the pelvis of uncertain etiology. DISC SPACES: There is multilevel disc degeneration with loss of normal T2 signal. T12-L1: No disc herniation, spinal canal stenosis or neural foraminal narrowing. L1-2: Small left foraminal disc protrusion. No spinal canal stenosis or neural foraminal narrowing. L2-3: Diffuse posterior disc bulge with superimposed right foraminal disc protrusion. No central spinal canal stenosis. Mild right neural foraminal narrowing. L3-4: Diffuse posterior disc bulge without central spinal canal stenosis. Also noted a superimposed right foraminal and far lateral disc protrusion which abuts the exiting right L3 nerve root. Mild bilateral facet arthropathy contribute to moderate right and mild left neural foraminal narrowing. L4-5: Diffuse posterior disc bulge without central spinal canal stenosis. Mild bilateral facet arthropathy contribute to mild neural foraminal narrowing. L5-S1: Diffuse posterior disc bulge and mild spinal canal stenosis. Also noted is superimposed left foraminal and far lateral disc protrusion which abuts the exiting left L5 nerve root. Mild bilateral facet arthropathy contribute to mild right and severe left neural foraminal narrowing. OTHER FINDINGS: None. IMPRESSION: Mild multilevel degenerative disc disease, at L3-4 diffuse posterior disc bulge and superimposed right foraminal and far lateral disc protrusions which abut the exiting right L3 nerve root. No central spinal canal stenosis. At L5-S1 diffuse posterior disc bulge with superimposed left foraminal and far lateral disc protrusions which abut the exiting left L5 nerve root. Also noted is mild spinal canal stenosis and severe left neural foraminal narrowing.
--- NOTE | 2018-03-19 19:30 | CON ---
Copied To: Lit Apple MD Attending MD: Morgan Macdonald MD DATE: 03/19/2018 LOCATION: The patient is in room 371. TIME OF EVALUATION: 06:55 a.m. NEUROLOGICAL PROBLEM: Right leg pain. CHIEF COMPLAINT: The patient was brought into [facility] with history of abrupt onset of right side leg pain since she woke up yesterday. From neurological point of view, I was called into evaluate her for further management. HISTORY OF PRESENTING ILLNESS: Ms. Yakelin Willson is a 62-year-old normally built right-handed female, presenting with woke up with right leg pain, mostly over the right anterior aspect of , which is excruciating in nature 10/10, on pain scale, associating with some numbness and tingling sensation over the right anterolateral aspect of her thigh. She also admitted weakness of her leg, could not able to put her weight on her right side of the leg. History of lower back pain. No history of bowel or bladder incontinence. No history of fall. No history of similar episodes happened in the past. No history of neck pain. No history of visual or bulbar dysfunction. PAST MEDICAL HISTORY: Significant for asthma, diabetes, hypertension, hypercholesterolemia, pneumonia. SURGICAL HISTORY: Heart transplantation more than ten years ago. ALLERGIES: NO KNOWN ALLERGIES. REVIEW OF SYSTEMS: A 12-point system being reviewed. From Neuro, new onset of right leg pain. MEDICATIONS: Hydralazine, Crestor, aspirin, Flexeril, folic acid, Lasix, Lidoderm, NovoLog, Prograf. PHYSICAL EXAMINATION: VITAL SIGNS: Blood pressure 110/71, mean arterial pressure of 84, respiratory rate 18, temperature 98.5, pulse rate 85 regular. NECK: Supple. No carotid bruits. HEART: Sounds good with a systolic murmur. CHEST: Fair air entry. EXTREMITIES: No edema in legs. NEUROLOGICAL: Mental status: She is awake, alert and oriented to person, place and time. This morning with the pain, which is unbearable in nature. Holding her thigh in both hands. Cranial nerve: Visual field intact. Pupils reactive to light. Extraocular movements normal. No nystagmus. No facial sensory deficit. No facial asymmetry. Hearing is normal. Tongue is midline. Good gag. Motor: Outstretched hand with eyes closed, no drift noted. Power is symmetric on either side. Deep tendon reflexes biceps, brachialis, triceps 1+ on either side, right knee absent, left knee 2+, both ankles are 1+. Plantars are downgoing. Sensory: Hypoesthesia over the L3 dermatome as well as L4 dermatome on her right leg superimposed with bilateral distal symmetric sensory motor neuropathy. Coordination: [id number] test is intact. Spine: Discomfort and tenderness over the right lumbar spine region. Gait is deferred at this time. WORKUP: X-ray of the lumbosacral spine reported as negative for acute pathology. BLOOD WORKUP: WBC 10.6, hemoglobin 13.2, hematocrit 39.5, platelet 189. Sodium 138, potassium 4.2, chloride 106, bicarbonate 20, GFR more than 50, BUN 33, creatinine 1.3, glucose 199. Urinalysis, 1+ proteinuria. CONCLUSION: Ms. Yakelin Willson has been presenting with two days history of right leg pain consistent with lumbar plexopathy manifesting with amyotrophy, which could be probably secondary to her underlying diabetes mellitus versus structural or inflammatory process involving lumbar plexus. However, other possible causes including lumbar spinal herniated disk may be pressing the either L3 root. Because of losing the reflex on the knee, it does not look like meralgia paresthetica. RECOMMENDATIONS: 1. Pain control. 2. Diabetic control. 3. Out of bed and physical therapy. 4. MRI of the lumbosacral spine to rule out any structural pathology. The patient should be kept on DVT prophylaxis, got to be out of bed and physical therapy as early as possible. Lit Apple MD
[2018-03-19] MEDS: Lidocaine 5% Patch TD SCH (21:30)
--- NOTE | 2018-03-19 21:42 | CP.PCM.PN ---
Subjective - Date & Time of Evaluation Date of Evaluation: 03/19/18 Time of Evaluation: 08:15 - Subjective Subjective: clinically same Objective - Vital Signs/Intake and Output Vital Signs (last 24 hours): Temp Pulse Resp BP Pulse Ox 98.5 F 88 20 143/89 96 03/19/18 16:00 03/19/18 16:00 03/19/18 16:00 03/19/18 16:00 03/19/18 16:30 Intake and Output: 03/19/18 03/20/18 18:59 06:59 Intake Total 480 Balance 480 - Medications Medications: Current Medications Albuterol/Ipratropium (Duoneb 3 Mg/0.5 Mg (3 Ml) Ud) 3 ml INH RQ6 PRN PRN Reason: Wheezing Aspirin (Ecotrin) 81 mg PO DAILY [facility] Last Admin: 03/19/18 09:42 Dose: 81 mg Cyclobenzaprine HCl (Flexeril) 5 mg PO TID [facility] Last Admin: 03/19/18 17:52 Dose: 5 mg Docusate Sodium (Colace) 100 mg PO TID [facility] Last Admin: 03/19/18 17:52 Dose: 100 mg Folic Acid (Folic Acid) 1 mg PO DAILY [facility] Last Admin: 03/19/18 09:44 Dose: 1 mg Furosemide (Lasix) 40 mg PO DAILY [facility] Last Admin: 03/19/18 09:41 Dose: 40 mg Heparin Sodium (Porcine) (Heparin) 5,000 units SC Q12 [facility] Last Admin: 03/19/18 21:20 Dose: 5,000 units Home Med (Alendronate Sodium [Binosto]) 70 mg PO QWK [facility] Last Admin: 03/19/18 09:40 Dose: 70 mg Hydralazine HCl (Apresoline) 10 mg PO DAILY [facility] Last Admin: 03/19/18 11:31 Dose: 10 mg Insulin Aspart (Novolog) 0 unit SC ACHS [facility] PRN Reason: Protocol Last Admin: 03/19/18 17:10 Dose: Not Given Lidocaine (Lidoderm) 2 ea TD Q24H [facility] Last Admin: 03/18/18 22:05 Dose: 2 ea Lisinopril (Zestril) 20 mg PO BID [facility] Last Admin: 03/19/18 18:11 Dose: 20 mg Magnesium Oxide (Mag-Ox) 400 mg PO DAILY [facility] Last Admin: 03/19/18 09:41 Dose: 400 mg Morphine Sulfate (Morphine) 2 mg IVP Q4 PRN PRN Reason: Pain, severe (8-10) Last Admin: 03/19/18 09:42 Dose: 2 mg Oxycodone/Acetaminophen (Percocet 5/325 Mg Tab) 1 tab PO Q6H PRN PRN Reason: Pain, severe (8-10) Stop: 03/22/18 07:12 Rosuvastatin Calcium (Crestor) 5 mg PO HS [facility] Last Admin: 03/19/18 21:20 Dose: 5 mg Tacrolimus (Prograf Cap) 0.5 mg PO DAILY [facility] Last Admin: 03/19/18 09:42 Dose: 0.5 mg Tacrolimus (Prograf Cap) 1 mg PO BID [facility] Last Admin: 03/19/18 17:53 Dose: 1 mg - Labs Labs: 03/18/18 12:12 03/19/18 08:14 - Constitutional Appears: Well - Head Exam Head Exam: ATRAUMATIC, NORMAL INSPECTION, NORMOCEPHALIC - Eye Exam Eye Exam: EOMI, Normal appearance, PERRL Pupil Exam: NORMAL ACCOMODATION, PERRL - ENT Exam ENT Exam: Mucous Membranes Moist, Normal Exam - Neck Exam Neck Exam: Full ROM, Normal Inspection. absent: Lymphadenopathy - Respiratory Exam Respiratory Exam: Decreased Breath Sounds - Cardiovascular Exam Cardiovascular Exam: REGULAR RHYTHM, +S1, +S2 - GI/Abdominal Exam GI & Abdominal Exam: Soft, Diminished Bowel Sounds - Rectal Exam Rectal Exam: Deferred Assessment and Plan (1) Asthma exacerbation Status: Acute (2) Bronchitis Status: Acute (3) Cervical strain Status: Acute (4) Head trauma Status: Acute (5) Influenza A Status: Acute (6) Influenza-like illness Status: Acute (7) Knee contusion Status: Acute (8) Viral disease Status: Acute
[2018-03-20] MEDS: (Novolog) Insulin Aspart, Recombinant 100 u/ml 10 ml vial SC SCH ×4 (07:19→21:57)
[2018-03-20 09:38] LABS: CALCIUM 9.4 mg/dl (8.6-10.4)
[2018-03-20] MEDS: Magnesium Oxide 400 mg Tab UD PO SCH (09:46)
[2018-03-20] MEDS: Oxycodone/Acetaminophen 5/325 mg Tab PO PRN (09:50)
--- NOTE | 2018-03-20 13:09 | PN ---
DATE: 03/20/2018 NEUROLOGICAL PROBLEM: Lumbar radiculopathy (L3). PHYSICAL EXAMINATION: VITAL SIGNS: Blood pressure 145/82, mean arterial pressure of 103, respiratory rate 18, pulse rate 85 and regular, temperature 98.3. The patient slept somewhat good better than previous night. The pain is somewhat controlled with current medication. Examination consistent with left L3-L4 radiculopathy. Her MRI of the lumbosacral spine have been reviewed. It showed disk herniation at L3-L4 region with neuroforaminal narrowing at the right L3 root. There is significant lumbosacral stenosis of L5 over S1 region. PLAN: 1. Optimize the pain medication to control her pain. 2. Gabapentin can be added 300 mg three times a day with Percocet p.r.n. at present. Strict diabetic control, physical therapy. If medically stable, the patient can be discharged and should have a followup visit with me as outpatient for later diagnostic studies to further establish her problem and better management. Lit Apple MD
--- NOTE | 2018-03-20 15:30 | CP.PCM.PN ---
Subjective - Date & Time of Evaluation Date of Evaluation: 03/20/18 Time of Evaluation: 08:00 - Subjective Subjective: clinically same Objective - Vital Signs/Intake and Output Vital Signs (last 24 hours): Temp Pulse Resp BP Pulse Ox 98.7 F 93 H 20 115/78 98 03/20/18 08:00 03/20/18 08:00 03/20/18 08:00 03/20/18 08:00 03/20/18 12:38 Intake and Output: 03/20/18 03/20/18 06:59 18:59 Intake Total 450 480 Balance 450 480 - Medications Medications: Current Medications Albuterol/Ipratropium (Duoneb 3 Mg/0.5 Mg (3 Ml) Ud) 3 ml INH RQ6 PRN PRN Reason: Wheezing Aspirin (Ecotrin) 81 mg PO DAILY [facility] Last Admin: 03/20/18 09:46 Dose: 81 mg Cyclobenzaprine HCl (Flexeril) 5 mg PO TID [facility] Last Admin: 03/20/18 13:39 Dose: 5 mg Docusate Sodium (Colace) 100 mg PO TID [facility] Last Admin: 03/20/18 13:39 Dose: 100 mg Folic Acid (Folic Acid) 1 mg PO DAILY [facility] Last Admin: 03/20/18 09:46 Dose: 1 mg Furosemide (Lasix) 40 mg PO DAILY [facility] Last Admin: 03/19/18 09:41 Dose: 40 mg Gabapentin (Neurontin) 300 mg PO TID [facility] Last Admin: 03/20/18 13:39 Dose: 300 mg Heparin Sodium (Porcine) (Heparin) 5,000 units SC Q12 [facility] Last Admin: 03/20/18 09:46 Dose: 5,000 units Home Med (Alendronate Sodium [Binosto]) 70 mg PO QWK [facility] Last Admin: 03/19/18 09:40 Dose: 70 mg Hydralazine HCl (Apresoline) 10 mg PO DAILY [facility] Last Admin: 03/20/18 09:46 Dose: 10 mg Insulin Aspart (Novolog) 0 unit SC ACHS [facility] PRN Reason: Protocol Last Admin: 03/20/18 11:48 Dose: Not Given Lidocaine (Lidoderm) 2 ea TD Q24H [facility] Last Admin: 03/19/18 21:30 Dose: 2 ea Lisinopril (Zestril) 20 mg PO BID [facility] Last Admin: 03/20/18 09:46 Dose: 20 mg Magnesium Oxide (Mag-Ox) 400 mg PO DAILY [facility] Last Admin: 03/20/18 09:46 Dose: 400 mg Morphine Sulfate (Morphine) 2 mg IVP Q4 PRN PRN Reason: Pain, severe (8-10) Last Admin: 03/20/18 11:03 Dose: 2 mg Oxycodone/Acetaminophen (Percocet 5/325 Mg Tab) 1 tab PO Q6H PRN PRN Reason: Pain, severe (8-10) Stop: 03/22/18 07:12 Last Admin: 03/20/18 09:50 Dose: 1 tab Rosuvastatin Calcium (Crestor) 5 mg PO HS [facility] Last Admin: 03/19/18 21:20 Dose: 5 mg Tacrolimus (Prograf Cap) 0.5 mg PO DAILY [facility] Last Admin: 03/20/18 09:46 Dose: 0.5 mg Tacrolimus (Prograf Cap) 1 mg PO BID [facility] Last Admin: 03/20/18 09:46 Dose: 1 mg - Labs Labs: 03/18/18 12:12 03/20/18 08:54 Assessment and Plan (1) Asthma exacerbation Status: Acute (2) Bronchitis Status: Acute (3) Cervical strain Status: Acute (4) Head trauma Status: Acute (5) Influenza A Status: Acute (6) Influenza-like illness Status: Acute (7) Knee contusion Status: Acute (8) Viral disease Status: Acute
[2018-03-20] MEDS: Lidocaine 5% Patch TD SCH (22:05)
[2018-03-21] MEDS: (Novolog) Insulin Aspart, Recombinant 100 u/ml 10 ml vial SC SCH ×2 (07:42→12:02)
--- NOTE | 2018-03-21 09:40 | CP.PCM.PN ---
Subjective - Date & Time of Evaluation Date of Evaluation: 03/21/18 Time of Evaluation: 08:00 - Subjective Subjective: clinically same Objective - Vital Signs/Intake and Output Vital Signs (last 24 hours): Temp Pulse Resp BP Pulse Ox 98.2 F 85 20 143/86 95 03/21/18 07:15 03/21/18 07:15 03/21/18 07:15 03/21/18 07:15 03/21/18 07:15 Intake and Output: 03/21/18 03/21/18 06:59 18:59 Intake Total 300 Balance 300 - Medications Medications: Current Medications Albuterol/Ipratropium (Duoneb 3 Mg/0.5 Mg (3 Ml) Ud) 3 ml INH RQ6 PRN PRN Reason: Wheezing Aspirin (Ecotrin) 81 mg PO DAILY [facility] Last Admin: 03/20/18 09:46 Dose: 81 mg Cyclobenzaprine HCl (Flexeril) 5 mg PO TID [facility] Last Admin: 03/20/18 18:03 Dose: 5 mg Docusate Sodium (Colace) 100 mg PO TID [facility] Last Admin: 03/20/18 18:09 Dose: 100 mg Folic Acid (Folic Acid) 1 mg PO DAILY [facility] Last Admin: 03/20/18 09:46 Dose: 1 mg Furosemide (Lasix) 40 mg PO DAILY [facility] Last Admin: 03/19/18 09:41 Dose: 40 mg Gabapentin (Neurontin) 300 mg PO TID [facility] Last Admin: 03/20/18 18:04 Dose: 300 mg Heparin Sodium (Porcine) (Heparin) 5,000 units SC Q12 [facility] Last Admin: 03/20/18 21:55 Dose: 5,000 units Home Med (Alendronate Sodium [Binosto]) 70 mg PO QWK [facility] Last Admin: 03/19/18 09:40 Dose: 70 mg Hydralazine HCl (Apresoline) 10 mg PO DAILY [facility] Last Admin: 03/20/18 09:46 Dose: 10 mg Insulin Aspart (Novolog) 0 unit SC ACHS [facility] PRN Reason: Protocol Last Admin: 03/21/18 07:42 Dose: Not Given Lidocaine (Lidoderm) 2 ea TD Q24H [facility] Last Admin: 03/20/18 22:05 Dose: 2 ea Lisinopril (Zestril) 20 mg PO BID [facility] Last Admin: 03/20/18 18:03 Dose: 20 mg Magnesium Oxide (Mag-Ox) 400 mg PO DAILY [facility] Last Admin: 03/20/18 09:46 Dose: 400 mg Morphine Sulfate (Morphine) 2 mg IVP Q4 PRN PRN Reason: Pain, severe (8-10) Last Admin: 03/20/18 11:03 Dose: 2 mg Oxycodone/Acetaminophen (Percocet 5/325 Mg Tab) 1 tab PO Q6H PRN PRN Reason: Pain, severe (8-10) Stop: 03/22/18 07:12 Last Admin: 03/20/18 09:50 Dose: 1 tab Rosuvastatin Calcium (Crestor) 5 mg PO HS [facility] Last Admin: 03/20/18 21:56 Dose: 5 mg Tacrolimus (Prograf Cap) 0.5 mg PO DAILY [facility] Last Admin: 03/20/18 09:46 Dose: 0.5 mg Tacrolimus (Prograf Cap) 1 mg PO BID [facility] Last Admin: 03/20/18 18:11 Dose: 1 mg - Labs Labs: 03/18/18 12:12 03/20/18 08:54 - Constitutional Appears: Well - Head Exam Head Exam: ATRAUMATIC, NORMAL INSPECTION, NORMOCEPHALIC - Eye Exam Eye Exam: EOMI, Normal appearance, PERRL Pupil Exam: NORMAL ACCOMODATION, PERRL - ENT Exam ENT Exam: Mucous Membranes Moist, Normal Exam - Neck Exam Neck Exam: Full ROM, Normal Inspection. absent: Lymphadenopathy - Respiratory Exam Respiratory Exam: Decreased Breath Sounds - Cardiovascular Exam Cardiovascular Exam: REGULAR RHYTHM, +S1, +S2 - GI/Abdominal Exam GI & Abdominal Exam: Soft, Diminished Bowel Sounds - Rectal Exam Rectal Exam: Deferred Assessment and Plan (1) Asthma exacerbation Status: Acute (2) Bronchitis Status: Acute (3) Cervical strain Status: Acute (4) Head trauma Status: Acute (5) Influenza A Status: Acute (6) Influenza-like illness Status: Acute (7) Knee contusion Status: Acute (8) Viral disease Status: Acute
[2018-03-21] MEDS: Magnesium Oxide 400 mg Tab UD PO SCH (10:15)
[2018-03-21] MEDS: Oxycodone/Acetaminophen 5/325 mg Tab PO PRN (10:20)
--- NOTE | 2018-03-21 16:19 | CP.PCM.PN ---
Subjective - Date & Time of Evaluation Date of Evaluation: 03/21/18 Time of Evaluation: 16:26 - Subjective Subjective: Alert, oriented x3, nad. Objective - Vital Signs/Intake and Output Vital Signs (last 24 hours): Temp Pulse Resp BP Pulse Ox 98.2 F 85 20 143/86 95 03/21/18 07:15 03/21/18 07:15 03/21/18 07:15 03/21/18 07:15 03/21/18 07:15 Intake and Output: 03/21/18 03/21/18 06:59 18:59 Intake Total 300 480 Balance 300 480 - Medications Medications: Current Medications Albuterol/Ipratropium (Duoneb 3 Mg/0.5 Mg (3 Ml) Ud) 3 ml INH RQ6 PRN PRN Reason: Wheezing Aspirin (Ecotrin) 81 mg PO DAILY [facility] Last Admin: 03/21/18 10:15 Dose: 81 mg Cyclobenzaprine HCl (Flexeril) 5 mg PO TID [facility] Last Admin: 03/21/18 13:17 Dose: 5 mg Docusate Sodium (Colace) 100 mg PO TID [facility] Last Admin: 03/21/18 13:17 Dose: 100 mg Folic Acid (Folic Acid) 1 mg PO DAILY [facility] Last Admin: 03/21/18 10:15 Dose: 1 mg Furosemide (Lasix) 40 mg PO DAILY [facility] Last Admin: 03/19/18 09:41 Dose: 40 mg Gabapentin (Neurontin) 300 mg PO TID [facility] Last Admin: 03/21/18 13:17 Dose: 300 mg Heparin Sodium (Porcine) (Heparin) 5,000 units SC Q12 [facility] Last Admin: 03/21/18 10:16 Dose: 5,000 units Home Med (Alendronate Sodium [Binosto]) 70 mg PO QWK [facility] Last Admin: 03/19/18 09:40 Dose: 70 mg Hydralazine HCl (Apresoline) 10 mg PO DAILY [facility] Last Admin: 03/21/18 10:16 Dose: 10 mg Insulin Aspart (Novolog) 0 unit SC ACHS [facility] PRN Reason: Protocol Last Admin: 03/21/18 12:02 Dose: Not Given Lidocaine (Lidoderm) 2 ea TD Q24H [facility] Last Admin: 03/20/18 22:05 Dose: 2 ea Lisinopril (Zestril) 20 mg PO BID [facility] Last Admin: 03/21/18 10:15 Dose: 20 mg Magnesium Oxide (Mag-Ox) 400 mg PO DAILY [facility] Last Admin: 03/21/18 10:15 Dose: 400 mg Morphine Sulfate (Morphine) 2 mg IVP Q4 PRN PRN Reason: Pain, severe (8-10) Last Admin: 03/20/18 11:03 Dose: 2 mg Oxycodone/Acetaminophen (Percocet 5/325 Mg Tab) 1 tab PO Q6H PRN PRN Reason: Pain, severe (8-10) Stop: 03/22/18 07:12 Last Admin: 03/21/18 10:20 Dose: 1 tab Rosuvastatin Calcium (Crestor) 5 mg PO HS [facility] Last Admin: 03/20/18 21:56 Dose: 5 mg Tacrolimus (Prograf Cap) 0.5 mg PO DAILY [facility] Last Admin: 03/21/18 10:16 Dose: 0.5 mg Tacrolimus (Prograf Cap) 1 mg PO BID [facility] Last Admin: 03/21/18 10:15 Dose: 1 mg - Labs Labs: 03/18/18 12:12 03/20/18 08:54 Assessment and Plan - Assessment and Plan (Free Text) Assessment: Patient is seen and examined. Alert and orientedx3, no acute pain today. Tolerated walking with walker. Cleared by DR hernandez, neurologist. Discussed with DR Nithya Macdonald, plan to discharge home on neurontin and percocet. Advised to follow up in the office on Saturday.
[2018-03-21 16:35] VITALS: BP 138/86; PULSE 95; TEMP 97.3
--- NOTE | 2018-03-22 01:24 | PN ---
DATE: 03/21/2018 TIME OF EVALUATION: 07:05 a.m. NEUROLOGICAL PROBLEM: Right lumbar radiculopathy (L3) superimposed with the radiological evidence of L5-S1 stenosis. PHYSICAL EXAMINATION: VITAL SIGNS: Blood pressure 130/84, mean arterial pressure of 99, respiratory rate 18, pulse rate 90 regular, temperature 98.3 degrees Fahrenheit. The patient slept good. Pain controlled, more than 50% of the pain is gone with the current medication. The patient is ambulatory with the walker, still complaining of pain; however, the pain is tolerable. The examination is consistent with L3 radiculopathy superimposed lumbosacral stenosis because of the limited walking. RECOMMENDATIONS: 1. Continue gabapentin, Percocet as a p.r.n. basis. 2. Diabetic control. Continue the physical therapy. If medically stable, the patient can be discharged from neurological point of view and advised her to follow up with me to have electrodiagnostic studies to further establish her problem in order to give her . We are signing off from followup. The patient will be followed as outpatient. Lit Apple MD
[2018-03-23 17:20] VITALS: O2SAT 100
== END 2018-03-21 18:20 | disposition home or self-care (01) | DRG 552 ==
LOC: C.ER 11:11 → C.9E 16:10 → C.3T 17:29 → OBSVTOIN 03-20 17:25
PROVIDERS: ADMIT Internal Medicine Nephrology; ATTEND Internal Medicine Nephrology
DX: M51.16 Intervertebral disc disorders with radiculopathy, lumbar region (principal); Z94.1 Heart transplant status; E78.00 Pure hypercholesterolemia, unspecified; E78.5 Hyperlipidemia, unspecified; I10 Essential (primary) hypertension; M48.07 Spinal stenosis, lumbosacral region; Z95.0 Presence of cardiac pacemaker; J45.909 Unspecified asthma, uncomplicated; N31.9 Neuromuscular dysfunction of bladder, unspecified; E11.9 Type 2 diabetes mellitus without complications